=== PATIENT | female | born 1970 | race Caucasian/White ===

== ENCOUNTER → 2016-08-27 | Outpatient (CLI) | payer OTHER ==
[~2016-08-27] MED LIST: CALCTAB5 PO; CHOL100027 PO; GLUCTAB7 PO; IBUP-1050 PO; MTR600X PO; OMEG10007 PO; OXYC-57 PO; TRAM-10 PO
--- NOTE | 2016-08-28 12:47 | MAMMOGRAPHY REPORT ---
BILATERAL DIGITAL SCREENING MAMMOGRAM TOMOSYNTHESIS WITH CAD: 08/27/2016 CLINICAL HISTORY: Routine screening examination. TECHNIQUE: Breast tomosynthesis in addition to standard 2D mammography was performed. Current study was also evaluated with a Computer Aided Detection (CAD) system. COMPARISON: Comparison is made to exams dated: 06/08/2014 mammogram, 08/23/2015 mammogram, 10/16/2011 mammogram, and 12/20/2009 mammogram - [facility]. BREAST COMPOSITION: The tissue of both breasts is extremely dense, which lowers the sensitivity of mammography. FINDINGS: There are scattered and grouped benign-appearing microcalcifications diffusely scattered in the breasts. A dominant circumscribed mass in the 12:00 anterior right breast is unchanged hannah red to prior exams. No suspicious spiculated or irregular mass, architectural distortion or cluster of suspicious microcalcifications is seen. IMPRESSION: ACR BI-RADS CATEGORY 2: BENIGN There is no mammographic evidence of malignancy. A 1 year screening mammogram is recommended. The p atient will receive written notification of the results. Approximately 10% of breast cancers are not detected with mammography. A negative mammographic repor t should not delay biopsy if a clinically suggestive mass is present. Princess Hackett M.D. ay/:08/27/2016 16:49:48 Assembler Ping Pong Table: Vale GAGE)(Kay), [facility] letter sent: Normal 1/2 BI-RADS Code: ACR BI-RADS Category 2: Benign
== END | disposition home or self-care (01) ==
LOC: C.MAMM 14:53
PROVIDERS: ATTEND Family Medicine
DX: Z12.31 Encounter for screening mammogram for malignant neoplasm of breast (principal)

== ENCOUNTER → 2016-11-09 | Outpatient (CLI) | payer OTHER ==
[~2016-11-09] MED LIST changes: -CHOL100027 PO; -GLUCTAB7 PO
== END | disposition home or self-care (01) ==
LOC: C.LAB1850 16:20
PROVIDERS: ATTEND Obstetrics & Gynecology
DX: Z86.14 Personal history of Methicillin resistant Staphylococcus aureus infection (principal)

== ENCOUNTER → 2016-11-16 | Outpatient (CLI) | payer OTHER | END | disposition home or self-care (01) | LOC: C.LAB1850 16:10 | PROVIDERS: ATTEND Obstetrics & Gynecology | DX: Z86.14 Personal history of Methicillin resistant Staphylococcus aureus infection (principal) ==

== ENCOUNTER 2016-11-30 07:24 | Observation (INO) | payer OTHER ==
[2016-10-31 15:44] LABS: BASO % 0.6 %; BASO ABS # 0.04 K/uL (0-0.2); COMPLETE YES; EOS % 1.8 %; HEMATOCRIT 39.3 % (37-47); IG% 0.1 %; LYMPH % 29.7 %; LYMPH ABS # 2.03 K/uL (1.2-3.4); MEAN CELL VOLUME 93.1 fL (80-100); MEAN CORPUSCULAR HEMOGLOBIN 30.6 pg (25-34); MEAN CORPUSCULAR HGB CONC 32.8 g/dl (32-36); MEAN PLATELET VOLUME 9.2 fL (7.4-10.4); MONO % 5.4 %; NEUT % 62.4 %; PLATELET COUNT 344 K/uL (130-400); RED BLOOD COUNT 4.22 M/uL (4.2-5.4); WHITE BLOOD COUNT 6.83 K/uL (4.8-10.8)
[2016-10-31 16:18] LABS: BLOOD UREA NITROGEN 15 mg/dl (7-18); BUN/CREATININE RATIO 18.4 (10-20); CALCIUM 8.9 mg/dl (8.5-10.1); CARBON DIOXIDE 27 mmol/L (21-32); CHLORIDE 107 mmol/L (98-107); CREATININE 0.82 mg/dl (0.60-1.20); GLUCOSE 80 mg/dl (70-99); POTASSIUM 4.3 mmol/L (3.5-5.1); SODIUM 141 mmol/L (136-145)
[2016-11-30] VITALS (7 sets, daily range): BP systolic 119–151; BP diastolic 71–83; PULSE 70–86; TEMP 36.2–37.2; O2SAT 99–100; Ht 162.6 cm; Wt 54.3 kg
[~2016-11-30] VITALS: Ht 162.6 cm; Wt 54.3 kg
[~2016-11-30 07:24] MED LIST changes: +CEFAZOLIN 2000 MG/60 ML D5W IV SCH; +LACTATED RINGER'S 1000ML 1,000 ML IV SCH; -MTR600X PO; -OXYC-57 PO
[2016-11-30] MEDS ORDERED: LIDOCAINE HCL 2% 2 ML VIAL (20MG/ML) ONE (08:00)
[2016-11-30] MEDS ORDERED: MIDAZOLAM HCL 1 MG/ML 2ML VIAL ONE (08:00)
[2016-11-30] MEDS ORDERED: PROPOFOL IV EMULSION 10 MG/ML 20 ML VIAL IV ONE (08:00)
[2016-11-30] MEDS ORDERED: GLYCOPYRROLATE INJ 0.2 MG/ML VIAL ONE ×2 (08:00→10:50)
[2016-11-30] MEDS ORDERED: DEXAMETHASONE SOD INJ 4 MG/ML VIAL ONE (08:00)
[2016-11-30] MEDS ORDERED: ONDANSETRON INJ 2 MG/ML 2 ML VIAL ONE (08:00)
[2016-11-30] MEDS ORDERED: ROCURONIUM BROMIDE 10 MG/ML 5 ML VIAL ONE ×2 (08:00→10:50)
[2016-11-30] MEDS ORDERED: NEOSTIGMINE METHYLSULFATE 5 MG/5 ML SYR ONE (08:00)
[2016-11-30] MEDS ORDERED: FENTANYL CITRATE INJ 50 MCG/1 ML 2 ML VIAL ONE (08:01)
--- NOTE | 2016-11-30 08:39 | History & Physical Bridge Note ---
H&P Re-Evaluation Bridge Note: I have examined the patient, reviewed the History & Physical and in the interval since the performance of the History & Physical I have noted the following changes of clinical significance: No changes noted
[2016-11-30] MEDS ORDERED: BUPIVACAINE 0.5 % 5 MG/1 ML MPF 30ML VIAL ONE (09:14)
[2016-11-30] MEDS ORDERED: METHYLENE BLUE 0.5% 10 ML VIAL ONE (09:14)
[2016-11-30] MEDS ORDERED: KETOROLAC TROMETHAMINE 30 MG/ML VIAL ONE (11:12)
[2016-11-30] MEDS ORDERED: TISSEEL FIBRIN SEALANT 4ML TOP ONE (11:21)
[2016-11-30] MEDS ORDERED: LACTATED RINGER'S 1000ML 1,000 ML IV SCH (11:26)
--- NOTE | 2016-11-30 11:28 | [facility] Post Operative Brief Note ---
Immediate Operative Summary Operative Date Nov 30, 2016. Pre-Operative Diagnosis Adenomyosis Uterus fibroma Pelvic pain Post-Operative Diagnosis Adenomyosis Uterus fibroma Pelvic pain Endometriosis Endometriosis Procedure(s) Performed Robotic-assisted Total Laparoscopic Hysterectomy, bilateral salpingectomy, destruction of endometriosis, cystoscopy Surgeon Dr. Moser [employer] Manager Surgeon(s) none. Estimated Blood Loss 10 ml Findings Endometriosis Specimens A: uterus, cervix, bilateral fallopian tubes Drains Coleman Anesthesia General Complication(s) None Disposition Surgical ICU
--- NOTE | 2016-11-30 11:29 | Discharge Instructions ---
Discharge Instructions Date of Service Nov 30, 2016. Admission Reason for Admission: Pelvic Pain, Fibroid Uterus, Adenomyosis Discharge Discharge Diagnosis / Problem: menorrhagia Discharge Goals Goal(s): Routine recovery after surgery Activity Recommendations Activity Limitations: per Instructions/Follow-up section . Instructions / Follow-Up Instructions / Follow-Up POST OPERATIVE: BOWEL FUNCTION/MEDICATIONS: 1. Constipation pain and discomfort are the most common complaints 5-7 days after surgery. Points 2-6 address the things that can help. 2. Chewing gum can help stimulate the gut and help improve digestion and motility. 3. Milk of Magnesia 1-2 times per day until return of bowel function. 4. Colace is a stool softener that helps. Taking this 2-3 times per day until bowel function returns to normal is highly recommended. 5. Dulcolax is a laxative that may be used if several days have passed without a bowel movement. Alternatively Miralax may be used daily instead. 6. Drink plenty of fluids as this will also reduce constipation. 7. Narcotic pain medications will be prescribed by your physician. They are safe to use and we encourage you to use them. If you are not allergic, ibuprofen will also be prescribed. Many patients will be able to transition off of the narcotic medications to ibuprofen by postoperative day 3. ACTIVITY RECOMMENDATIONS: 1. Get plenty of rest and listen to your body. If you are tired, take a nap. 2. You may shower, but do not take a tub bath until you see your doctor at the 2 week post operative visit. 3. Absolutely NO intercourse and nothing in the vagina until you are examined by your doctor at the 6 week visit. At that visit it will be determined when such activities can be resumed. This can range from 6-12 weeks after your surgery depending on healing time. 4. The main physical activity in the first week should be walking. By the second week you can slowly increase activity. There are no limits on walking up and down stairs. 5. Do not lift more than 5-10 lbs for 4 weeks. Remember the "one-handed rule", i.e. if you can lift something with only one hand it's likely okay. 6. Minimize aquatic scientist like vacuuming and exercising for 4 weeks. "Overdoing it" can lead to incisions not healing, pain and vaginal bleeding , so again, listen to your body. 7. Driving can be resumed when you feel able. Do not drive within 24 hours of taking a narcotic medication. EXPECTATIONS: 1. Vaginal spotting, bleeding and discharge are common after surgery. There may even be an odor to the discharge which is often related to sutures used in the vagina. If you experience heavy vaginal bleeding, call the office number day or night [phone]. 2. Bladder discomfort is common after surgery from the catheter. This usually resolves in 1-2 weeks. 3. By the end of the 3rd or 4th week you should be feeling much better. It may take up to 6 weeks for your energy levels to return to normal. 4. Narcotic medications have side effects such as: dizziness, headache, nausea and/or vomiting. If you suspect your pain medication is causing problems, call our office and we may be able to prescribe an alternate medication. 5. The skin incisions are often covered with a liquid bandage. This will gradually peel off over time. CALL THE OFFICE IF YOU HAVE ANY OF THE FOLLOWIN. Temperature of 101 degrees or higher. 2. Severe abdominal or pelvic pain not relieved by pain medication. 3. Persistent nausea or vomiting. 4. Increased pain with urination or difficulty urinating. 5. Bright red bleeding that soaks more than 1 pad per hour. CONTACT PHONE NUMBERS: Main Office: [phone] Surgical Nurse: [phone] extension [phone] Avoid all tobacco products. If you need help to stop smoking, call [place]'s FREE QUITLINE at . This is a free call. Current Hospital Diet Patient's current hospital diet: Discharge Diet Recommended Diet: Regular Diet Procedures Procedures Performed: Robotic-assisted Total Laparoscopic Hysterectomy, bilateral salpingectomy, destruction of endometriosis, cystoscopy Pending Studies Studies pending at discharge: no Medical Emergencies . Who to Call and When: Medical Emergencies: If at any time you feel your situation is an emergency, please call 911 immediately. . Non-Emergent Contact Non-Emergency issues call your: Mortar Mixer Operator . . "Provider Documentation" section prepared by Dinesh Moser. . VTE Core Measure Inpt VTE Proph given/why not?: Ketan Restrepo, SCD's
[2016-11-30] MEDS ORDERED: OXYCODONE/ACETAMINOPHEN 5-325 TAB PO PRN ×2 (11:30)
[2016-11-30] MEDS ORDERED: MTR600X PO (11:30)
[2016-11-30] MEDS ORDERED: PROMETHAZINE HCL INJ 25 MG in SODIUM CHLORIDE 0.9% 50ML 50 ML IV PRN (11:30)
[2016-11-30] MEDS ORDERED: PROMETHAZINE HCL INJ 12.5 MG in SODIUM CHLORIDE 0.9% 50ML 50 ML IV PRN ×2 (11:30→12:00)
[2016-11-30] MEDS ORDERED: ONDANSETRON INJ 2 MG/ML 2 ML VIAL IV PRN ×2 (11:30→12:00)
[2016-11-30] MEDS ORDERED: BISACODYL 10 MG SUPP PR PRN (11:30)
[2016-11-30] MEDS ORDERED: MEPERIDINE HCL 50 MG/ML CARP IV PRN ×2 (11:30)
[2016-11-30] MEDS ORDERED: MAGNESIUM HYDROXIDE SUSP 30 ML UDC PO PRN (11:30)
[2016-11-30] MEDS ORDERED: OXYC-57 PO (11:30)
[2016-11-30] MEDS ORDERED: SIMETHICONE 80 MG CHEW PO PRN (11:30)
[2016-11-30] MEDS ORDERED: ACETAMINOPHEN 325 MG TAB PO PRN (11:30)
[2016-11-30] MEDS ORDERED: IBUPROFEN 600 MG TAB PO PRN (11:30)
[2016-11-30] MEDS ORDERED: ZOLPIDEM TARTRATE 5 MG TAB PO PRN (11:30)
[2016-11-30] MEDS ORDERED: KETOROLAC TROMETHAMINE 30 MG/ML VIAL IV. PRN (11:30)
[2016-11-30] MEDS ORDERED: HYDROmorphone INJ 1 MG/ML SYR ONE (11:59)
[2016-11-30] MEDS ORDERED: EpHEDrine SULFATE INJ 50 MG/ML AMP IV PRN (12:00)
[2016-11-30] MEDS ORDERED: FLUMAZENIL 0.1 MG/1 ML 10 ML VIAL IV PRN (12:00)
[2016-11-30] MEDS ORDERED: NALOXONE HCL 0.4 MG/1 ML VIAL/CARP IV PRN (12:00)
[2016-11-30] MEDS ORDERED: HYDROmorphone INJ 1 MG/ML SYR IV PRN (12:00)
[2016-11-30] MEDS ORDERED: ATROPINE SULFATE 0.1 MG/ML 5ML SYR IV PRN (12:00)
[2016-11-30] MEDS ORDERED: IV FLUIDS COMPLETED PRN (12:15)
--- NOTE | 2016-11-30 12:34 | Anesthesiology Progress Note ---
Anesthesia Post Op Note Date & Time Nov 30, 2016 at 12:34 Vital Signs Pain Intensity: 3 Vital Signs Past 12 Hours Date Time Temp Pulse Resp B/P (MAP) Pulse Ox O2 Delivery O2 Flow Rate FiO2 11/30/16 12:25 36.7 61 16 126/79 95 Room Air 11/30/16 12:15 61 16 132/80 97 Room Air 11/30/16 12:05 69 16 143/87 100 Room Air 11/30/16 11:55 61 16 135/83 100 Mask 10 11/30/16 11:45 62 16 120/80 100 Mask 10 11/30/16 11:36 36.0 70 16 124/82 99 Mask 10 11/30/16 07:50 37.2 74 16 119/71 (87) 99 Room Air Notes Mental Status: alert / awake / arousable, participated in evaluation Pt Amnestic to Procedure: Yes Nausea / Vomiting: adequately controlled Pain: adequately controlled Airway Patency, RR, SpO2: stable & adequate BP & HR: stable & adequate Hydration State: stable & adequate Anesthetic Complications: no major complications apparent
--- NOTE | 2016-11-30 13:19 | OPERATIVE REPORT ---
DATE OF OPERATION: 11/30/2016 PREOPERATIVE DIAGNOSES: Pelvic pain, menorrhagia and enlarged uterus. POSTOPERATIVE DIAGNOSES: Pelvic pain, enlarged uterus, endometriosis, and menorrhagia. PROCEDURE: Robotically assisted total laparoscopic hysterectomy, bilateral salpingectomy, destruction of endometriosis and cystoscopy. SURGEON: Dr. Moser. FUR FARMER: None. ESTIMATED BLOOD LOSS: 10 mL. FINDINGS: Endometriosis. SPECIMENS: Uterus, cervix, bilateral fallopian tubes. DRAINS: Coleman catheter. ANESTHETIC: General. COMPLICATIONS: None. DISPOSITION: Recovery room. DESCRIPTION OF PROCEDURE: Evette was given a general anesthetic, prepped and draped in dorsal lithotomy position in [facility]. Coleman catheter used to drain her bladder and C carrier attached to her cervix and sewn in place. Uterus was enlarged with mask more posterior of the uterus. Gloves changed and a supraumbilical incision made with scalpel using Dale technique, we did a direct entry with cutdown technique with incision above the umbilicus, cutting down to the fascia, cutting this with Metzenbaums, splitting the rectus muscles and entering the peritoneal cavity without difficulty. The blunt-tipped Dale trocar was then placed. Balloon inflated to support the trocar and then CO2 gas to insufflate the abdomen. FINDINGS: Upper abdomen normal, no sign of visceral organ injury. Deep Trendelenburg position then obtained. Two robotic ports placed, 1 in the left, 1 on the right and then a left upper quadrant a 11 mm bladeless trocar placed. All ports injected with 0.5% Marcaine. FINDINGS: Enlarged uterus with endometriosis in the back wall of the uterus as well as the left ovary, so it was minimally on the left ovary. There was no endometriosis on the pelvic sidewalls and the ureter locations were normal. The bladder flap was also clear as was the appendix. Procedure was begun using the Prismatic manipulator and docking the robot, arm #1 was monopolar pete. Arm #2 was a [place] grasper. We first removed the fallopian tubes, first in the left and the right side, each removed through the accessory port. Identified the ureter on the left side and then coagulated the blood supply distal to the ovary using the bipolar [place] cut with the monopolar pete. The minimal endometriosis was coagulated with the monopolar pete on the left ovary. Round ligament was coagulated and cut. We then skeletonized the uterine vessels on the left side, developed a bladder flap and then coagulated the vessels on the left side, taking care that the ureter was well away from the location. Uterine vessels were then cut with monopolar pete. The exact same process was continued on the right side. Once both uterine vessels were ligated and the bladder flap was fully dissected away, I was able to make a monopolar scissors anterior colpotomy carrying this around to separate the cervix from the vagina completely, staying medial to our uterine vessel ligations. I was able to ensure all the posterior endometriosis was removed with the specimen or destroyed with electrosurgery on the right uterosacral ligament. Specimen was then able to be actually removed through the vagina. This was pulled through carefully and then removed and then a sponge and a glove was placed for pneumoperitoneum. After generous irrigation and suction, we then injected methylene blue intravenously by anesthesia. Instrument exchange arm #1 became the hailey needle driver/sales workers, arm #2 became the Danal d/b/a [employer] grasper. A 2-0 12 inch, 90 day V-Loc suture was then passed through the accessory port. Cuff was closed left to right, back right to left taking sure to incorporate least 1 cm thickness bites of vaginal mucosa full thickness. Once this was done, the suture was cut so there was no tail, accessory port was then used to remove the needle. We then performed cystoscopy. Her urethra was somewhat narrow apertures we actually had to use the pediatric cystoscope, but using normal saline as a solution I visualized the bladder, there was no sign of injury and good strong jets of bluish dye from both left and right ureter openings. Cystoscope removed and a 14 Coleman catheter was then placed for drainage. We then ran back to the robotic console and then we were able to apply Tisseel to the regions of the cuff and the ovarian pedicles for further hemostasis. At this stage, the instruments removed, undocked, and ports removed, gas allowed to escape. Fascia was closed with 0 Vicryl in the umbilical and in the left upper quadrant port and then 4-0 subcuticular Monocryl closures on all the ports with Dermabond applied. Sponge and instrument counts correct. I attest to the content of the Intraoperative Record and any orders documented therein. Any exception s are noted below.
[2016-11-30 16:01] LABS: PREG INTERNAL NEGATIVE QC NEG CLEAR BACKGROUND; PREG INTERNAL POSITIVE QC POS CONTROL LINE
[2016-11-30] MEDS ORDERED: DOCUSATE SODIUM 100 MG CAP PO SCH (21:00)
--- NOTE | 2016-12-03 10:25 | DISCHARGE SUMMARY ---
Evette had a total laparoscopic hysterectomy on 11/30/2016. Her course in hospital was only for a few hours. By approximately 6 hours after surgery she was ambulating, tolerating an oral diet, voiding well, pain was well controlled. She had no significant nausea and vomiting and no extremity pain. PHYSICAL EXAMINATION: VITAL SIGNS: Stable. She was afebrile. IMPRESSION AND PLAN: 6 hours post-surgery. Met discharge criteria. Discharged on Percocet and Motrin and told to follow up in the office and given discharge instructions.
== END 2016-11-30 18:46 | disposition home or self-care (01) ==
LOC: C.ACU 07:24 → C.MS4N 07:40
PROVIDERS: ADMIT Obstetrics & Gynecology; ATTEND Obstetrics & Gynecology
DX: N80.0 Endometriosis of uterus (principal); N72 Inflammatory disease of cervix uteri; D25.9 Leiomyoma of uterus, unspecified; N83.8 Other noninflammatory disorders of ovary, fallopian tube and broad ligament

== ENCOUNTER → 2016-12-10 | Outpatient (CLI) | payer OTHER ==
[~2016-12-10] MED LIST changes: -CEFAZOLIN 2000 MG/60 ML D5W IV SCH; -LACTATED RINGER'S 1000ML 1,000 ML IV SCH; +MTR600X PO; +OXYC-57 PO
[2016-12-10 18:08] LABS: URINE APPEARANCE CLEAR (CLEAR); URINE BILIRUBIN NEG (NEG); URINE COLOR YELLOW; URINE NITRITE NEG (NEG); URINE SPECIFIC GRAVITY 1.014 (1.000-1.030); UROBILINOGEN NEG (NEG)
[2016-12-10 18:11] LABS: MANUAL MICROSCOPIC REQUIRED? NO; REVIEW REQ? NO
== END | disposition home or self-care (01) ==
LOC: C.LAB1850 15:18
PROVIDERS: ATTEND Obstetrics & Gynecology
DX: R35.0 Frequency of micturition (principal); R30.9 Painful micturition, unspecified

== ENCOUNTER → 2017-06-19 | Outpatient (CLI) | payer OTHER | END | disposition home or self-care (01) | LOC: C.LABSPEC 13:38 | PROVIDERS: ATTEND Physician Assistant | DX: N89.8 Other specified noninflammatory disorders of vagina (principal) ==

== ENCOUNTER → 2017-06-20 | Outpatient (CLI) | payer OTHER | END | disposition home or self-care (01) | LOC: C.LAB1850 08:38 | PROVIDERS: ATTEND Physician Assistant | DX: R39.9 Unspecified symptoms and signs involving the genitourinary system (principal) ==

== ENCOUNTER → 2017-08-08 | Outpatient (CLI) | payer OTHER ==
--- NOTE | 2017-08-08 15:18 | MAMMOGRAPHY REPORT ---
BILATERAL DIGITAL DIAGNOSTIC MAMMOGRAM TOMOSYNTHESIS WITH CAD AND TARGETED RIGHT ULTRASOUND: 08/08/2017 CLINICAL HISTORY: The patient reports an enlarging right breast lump. The patient does not have any associated pain. TECHNIQUE: Breast tomosynthesis in addition to standard 2D mammography was performed. Current study was also evaluated with a Computer Aided Detection (CAD) system. Bilateral CC and MLO 2-D and tomosy nthesis images were obtained. COMPARISON: Comparison is made to exams dated: 08/27/2016 mammogram, 08/23/2015 mammogram, 06/08/2014 mammogram, 06/04/2013 mammogram, 10/16/2011 mammogram, and 12/20/2009 mammogram - [facility]. BREAST COMPOSITION: The tissue of both breasts is extremely dense, which lowers the sensitivity of m ammography. FINDINGS: A triangle marker sterling the site of the palpable lump in the right upper outer quadrant. I n the right 12:00 breast there is an obscured round mass which measures approximately 2.4 cm, which m ay account for the palpable lump. The remainder of both breasts demonstrate no suspicious masses, ca lcifications, or areas of architectural distortion. Scattered bilateral benign-appearing calcificati ons are not significantly changed. Targeted ultrasound was performed of the area of the palpable lump pointed out by the patient. In the right breast at approximately 12:00, 2-3 cm from the nipple, at the site of the palpable lump there is an oval circumscribed anechoic mass which measures 2.7 x 1.8 x 2.5 cm. This corresponds with the dominant mammographic mass and is benign and compatible with a simple cyst. Another anechoic benign simple cyst measuring 10 mm is seen within the right 12:00 subareolar breast. IMPRESSION: ACR BI-RADS CATEGORY 2: BENIGN, TARGETED ULTRASOUND ACR BI-RADS CATEGORY 2: BENIGN The palpable lump in the right 12:00 breast corresponds with a benign 2.7 cm simple cyst on ultrasoun d. There is no mammographic or targeted sonographic evidence of malignancy. Recommend clinical foll ow-up for the right breast palpable lump, and recommend routine bilateral screening mammograms in one year. The patient has been verbally notified of the results. Approximately 10% of breast cancers are not detected with mammography. A negative mammographic report should not delay biopsy if a clinically suggestive mass is present. Stephy Guerrero M.D. ah/:08/08/2017 10:29:59 Psychology Assistant: Jeni Rivera, [facility] letter sent: Normal /2 BI-RADS Code: ACR BI-RADS Category 2: Benign Ultrasound BI-RADS: ACR BI-RADS Category 2: Benign
== END | disposition home or self-care (01) ==
LOC: C.MAMM 09:59
PROVIDERS: ATTEND Obstetrics & Gynecology
DX: N63.10 Unspecified lump in the right breast, unspecified quadrant (principal)

== ENCOUNTER 2024-03-05 18:48 | Observation (INO) ==
[2024-03-05 18:59] VITALS: TEMP 98.2
[2024-03-05] MEDS: ASPIRIN CHEW 324 MG PO STA (19:10)
[2024-03-05] MEDS: NITROGLYCERIN SL 0.4 MG/TAB TAB SL PRN (19:11)
[2024-03-05 19:32] LABS: iSTAT Creatinine 0.7 mg/dl (0.6-1.3); iSTAT Hemoglobin 14.3 g/dl (12.0-16.0); iSTAT Ionized Calcium 1.19 mmol/l (1.12-1.32); iSTAT Potassium 3.6 mmol/L (3.3-5.0)
[2024-03-05] MEDS: OPTIRAY 320 125ml IV ONE (19:41)
[2024-03-05 19:42] LABS: Basophils # (auto) 0.06 K/uL (0.00-0.20); Basophils % (auto) 0.8 %; Eosinophils # (auto) 0.11 K/uL (0.00-0.50); Eosinophils % (auto) 1.5 %; Hematocrit (blood only) 40.1 % (37.0-47.0); Hemoglobin 13.6 g/dl (12.0-16.0); Immature Granulocytes # (auto) 0.03 K/uL (0.01-0.20); Immature Granulocytes % (auto) 0.4 %; Lymphocytes # (auto) 2.17 K/uL (1.20-3.40); Lymphocytes % (auto) 29.7 %; Mean Corpuscular Hemoglobin 30.8 pg (25.0-34.0); Mean Corpuscular Hgb Conc 33.9 g/dL (32.0-36.0); Mean Corpuscular Volume 90.9 fL (80.0-100.0); Mean Platelet Volume 9.1 fL (9.4-12.4); Monocytes # (auto) 0.48 K/uL (0.11-0.59); Monocytes % (auto) 6.6 %; Neutrophils # (auto) 4.45 K/uL (1.40-6.50); Platelet Count 355 K/uL (130-400); RDW Coefficient of Variation 12.9 % (11.5-14.5); RDW Standard Deviation 42.4 fL (36.4-46.3); Red Blood Count 4.41 M/uL (4.20-5.40)
[2024-03-05 19:44] LABS: BUN Creatinine Ratio 15.4 (10-20); Calcium 9.4 mg/dl (8.6-10.3); Creatinine Clr Calc Pharmacy 72.9 ml/min; Est GFR (African American) 101.3 ml/min; Est GFR (Non-African American) 87.4 ml/min; Potassium 3.7 mmol/L (3.5-5.1)
[2024-03-05 19:51] LABS: Troponin I High Sensitivity 2.9 pg/ml (0-14)
[2024-03-05 19:52] LABS: Partial Thromboplastin Ratio 1.1; Partial Thromboplastin Time 30 Seconds (21-31); Prothrombin Time 10.8 Seconds (9.0-12.0)
--- NOTE | 2024-03-05 20:07 | CT Scan Report ---
Exam(s): CTA CHEST IV Amt: 110 ml optriay 320 EXAM: CT Angiography Chest With Intravenous Contrast CLINICAL HISTORY: sob palpitations. TECHNIQUE: Axial computed tomographic angiography images of the chest with intravenous contrast. CTDI is 14.25 mGy and DLP is 370 mGy-cm. Automated exposure control was utilized for the study. A dose lowering technique was utilized adhering to the principles of ALARA. MIP reconstructed images were created and reviewed. COMPARISON: No relevant prior studies available. FINDINGS: Pulmonary arteries: Unremarkable. No pulmonary embolism. Aorta: No acute findings. No thoracic aortic aneurysm. Lungs: Unremarkable. No mass. No consolidation. Pleural space: Unremarkable. No significant effusion. No pneumothorax. Heart: Unremarkable. No cardiomegaly. No significant pericardial effusion. Bones/joints: No acute fracture. No dislocation. Soft tissues: Unremarkable. Lymph nodes: Unremarkable. No enlarged lymph nodes. IMPRESSION: Normal chest CTA. No pulmonary embolism. Electronically signed by: Tony Rodriguez MD 03/05/24 20:06 PM
--- NOTE | 2024-03-05 21:08 | History & Physical Report ---
Date of Service March 05, 2024 Assessment & Plan (1) Hypertensive urgency: Plan: Palpitations secondary to symptomatic PVCs Anxiety contributory Past tobacco abuse OBS Initiate beta-elva to suppress ectopy TTE, Cardiology consult Re: Palpitations Anxiolytic as needed DVT prophylaxis. SCDs Full code Text document was generated using [employer] voice recognition software. It may contain grammatical or spelling errors. Kindly contact undersigned for clarification of any documentation item in question. History of Present Illness Chief Complaint: High blood pressure, palpitations Primary Care Provider: Jennifer Monzon PA-C History obtained from patient, family, and records. Medical history significant for past tobacco abuse. Last confinement 2016 under Gynecology service for elective total laparoscopic hysterectomy. Patient woke up this morning not feeling well. High blood pressure throughout the day, SBP 1 40-210. Palpitations without chest pain or SOB. Denies unusual headache symptoms. Admits to some stress at home due to losing employment recently. Denies inordinate OTC NSAID intake. Admits to some dietary indiscretion. Patient snores a little as per but no witnessed apneic episodes at home. SBP 230s upon arrival at the ER. Occasional PVCs noted on ED telemetry. Medical History as above Surgical History : Hysterectomy Family History : Heart disease, DM, thyroid disease, lung cancer Personal/Social history : Past tobacco abuse, occasional EtOH intake, veterinary clinic employment Allergies Allergy/AdvReac Type Severity Reaction Status Date / Time No Known Allergies Allergy Verified 03/06/24 00:27 Home Medications Medication Instructions Recorded Confirmed Type baclofen 10 mg tablet 10 mg PO DAILY PRN PAIN/ SWELLING 09/25/23 03/06/24 History ascorbic acid (vitamin C) 1,000 mg 1,000 mg PO DAILY 03/06/24 03/06/24 History tablet (Vitamin C) aspirin 81 mg capsule 81 mg PO TID PRN Pain 03/06/24 03/06/24 History calcium acetate 667 mg tablet 667 mg PO DAILY 03/06/24 03/06/24 History famotidine 20 mg tablet 20 mg PO DAILY PRN Acid Reflux 03/06/24 03/06/24 History ibuprofen 200 mg tablet 200 mg PO Q6H PRN Pain 03/06/24 03/06/24 History multivitamin 1 tab PO DAILY 03/06/24 03/06/24 History psyllium husk 2.6 gram/4.1 gram 1 tsp PO DAILY 03/06/24 03/06/24 History oral powder Past Med/Surg History Problem List (Updated 03/06/24 @ 03:57 by Tobias Sutton MD) Hypertensive urgency Dyspnea (Acute) Palpitations (Acute) Menopause Spider veins Routine gynecological examination COVID-19 (Acute) Endometriosis Menorrhagia Pelvic pain Medical History No acute medical problems Surgical History No pertinent past surgical history Family History Father Myocardial infarction Denies family history of Ovarian cancer Prostate cancer Breast cancer Colorectal cancer Social History Smoking Status: Never smoker Second Hand Exposure: No; Do You Dip or Chew Tobacco: No; Tobacco Cessation Education Requested by Patient: No Hx Alcohol Use: Yes Alcohol type: other Hx Substance Use: No Preferred Language: Greek Communication Ability: Effective Mapping Pilot Required: No Beliefs That Will Affect Care: None Current Living Situation: Spouse Other Information That Helps Us Care for You: No Feels Safe at Home: Yes Safety Concerns: Feels Safe At This Time Assistive Devices: None Review of Systems Review of Systems: As per HPI, all other systems reviewed and negative Physical Exam Physical Exam: GENERAL: Comfortable, pleasant, no respiratory distress SKIN: Normal color, warm HEENT: [place] palpebral conjunctivae, no ptosis, moist buccal mucosa NECK : Supple, no tenderness CHEST : CTA, no tenderness HEART : RRR, no obvious murmurs ABDOMEN: Some distention, nontender EXTREMITIES : No LE swelling/tenderness, no other conspicuous deformities noted NEUROLOGIC : Coherent, no facial asymmetry, no other gross focality Results & Data Results & Data Vital Signs (Past 12 Hours) Vital Signs Temp Pulse Pulse Resp BP BP Pulse Ox 03/05/24 20:30 78 16 161/102 H 98 03/05/24 20:26 98 03/05/24 19:47 84 20 172/97 H 97 03/05/24 19:29 78 179/103 H 03/05/24 19:23 85 20 197/114 H 98 03/05/24 19:11 88 18 212/138 H 97 03/05/24 19:01 88 20 98 03/05/24 18:56 36.8 C 83 16 234/123 H 98 O2 Del Method 03/05/24 20:30 Room Air 03/05/24 20:26 Room Air 03/05/24 19:47 Room Air 03/05/24 19:29 Room Air 03/05/24 19:23 Room Air 03/05/24 19:11 Room Air 03/05/24 19:01 Room Air 03/05/24 18:56 Room Air Laboratory Results Laboratory Results WBC 7.30 K/ul (4.8-10.8) 03/05/24 19:11 RBC 4.41 M/uL (4.20-5.40) 03/05/24 19:11 Hgb 13.6 g/dl (12.0-16.0) 03/05/24 19:11 POC Hgb 14.3 g/dl (12.0-16.0) 03/05/24 19:18 Hct 40.1 % (37.0-47.0) 03/05/24 19:11 POC Hct 42 % (37-47) 03/05/24 19:18 MCV 90.9 fL (80.0-100.0) 03/05/24 19:11 MCH 30.8 pg (25.0-34.0) 03/05/24 19:11 MCHC 33.9 g/dL (32.0-36.0) 03/05/24 19:11 RDW Std Deviation 42.4 fL (36.4-46.3) 03/05/24 19:11 RDW Coeff of Purnima 12.9 % (11.5-14.5) 03/05/24 19:11 Plt Count 355 K/uL (130-400) 03/05/24 19:11 MPV 9.1 fL (9.4-12.4) L 03/05/24 19:11 Immature Gran % (Auto) 0.4 % 03/05/24 19:11 Neut % (Auto) 61.0 % 03/05/24 19:11 Lymph % (Auto) 29.7 % 03/05/24 19:11 Dundy % (Auto) 6.6 % 03/05/24 19:11 Eos % (Auto) 1.5 % 03/05/24 19:11 Baso % (Auto) 0.8 % 03/05/24 19:11 Neut # (Auto) 4.45 K/uL (1.40-6.50) 03/05/24 19:11 Lymph # (Auto) 2.17 K/uL (1.20-3.40) 03/05/24 19:11 Dundy # (Auto) 0.48 K/uL (0.11-0.59) 03/05/24 19:11 Eos # (Auto) 0.11 K/uL (0.00-0.50) 03/05/24 19:11 Baso # (Auto) 0.06 K/uL (0.00-0.20) 03/05/24 19:11 Immature Gran # (Auto) 0.03 K/uL (0.01-0.20) 03/05/24 19:11 PT 10.8 Seconds (9.0-12.0) 03/05/24 19:11 INR 1.0 (0.9-1.1) 03/05/24 19:11 APTT 30 Seconds (21-31) 03/05/24 19:11 PTT Ratio 1.1 03/05/24 19:11 POC Sodium 139 mmol/L (135-144) 03/05/24 19:18 Sodium 138 mmol/L (136-145) 03/05/24 19:11 POC Potassium 3.6 mmol/L (3.3-5.0) 03/05/24 19:18 Potassium 3.7 mmol/L (3.5-5.1) 03/05/24 19:11 POC Chloride 105 mmol/L (101-112) 03/05/24 19:18 Chloride 104 mmol/L (98-107) 03/05/24 19:11 Carbon Dioxide 26 mmol/L (21-32) 03/05/24 19:11 POC Total CO2 24 mmol/L (24-31) 03/05/24 19:18 Anion Gap 8 (3-11) 03/05/24 19:11 POC Anion Gap 15.0 mmol/L (16-25) L 03/05/24 19:18 POC BUN 12 mg/dl (7-18) 03/05/24 19:18 BUN 12 mg/dl (6-23) 03/05/24 19:11 Creatinine 0.78 mg/dl (0.6-1.2) 03/05/24 19:11 POC Creatinine 0.7 mg/dl (0.6-1.3) 03/05/24 19:18 Est Cr Clr Drug Dosing 72.9 ml/min 03/05/24 19:11 Est GFR ( Amer) 101.3 ml/min 03/05/24 19:11 Est GFR (Non-Af Amer) 87.4 ml/min 03/05/24 19:11 BUN/Creatinine Ratio 15.4 (10-20) 03/05/24 19:11 Glucose 102 mg/dl (70-99(Fasting)) H 03/05/24 19:11 POC Glucose (other) 102 mg/dl (70-99) H 03/05/24 19:18 Calcium 9.4 mg/dl (8.6-10.3) 03/05/24 19:11 POC Ioniz Calcium Shen 1.19 mmol/l (1.12-1.32) 03/05/24 19:18 Troponin I High Sens 2.9 pg/ml (0-14) 03/05/24 19:11 Lipase 25 U/L (11-82) 03/05/24 19:11 Impressions Chest CTA 03/05/24 19:09 Exam(s): CTA CHEST IV Amt: 110 ml optriay 320 EXAM: CT Angiography Chest With Intravenous Contrast CLINICAL HISTORY: sob palpitations. TECHNIQUE: Axial computed tomographic angiography images of the chest with intravenous contrast. CTDI is 14.25 mGy and DLP is 370 mGy-cm. Automated exposure control was utilized for the study. A dose lowering technique was utilized adhering to the principles of ALARA. MIP reconstructed images were created and reviewed. COMPARISON: No relevant prior studies available. FINDINGS: Pulmonary arteries: Unremarkable. No pulmonary embolism. Aorta: No acute findings. No thoracic aortic aneurysm. Lungs: Unremarkable. No mass. No consolidation. Pleural space: Unremarkable. No significant effusion. No pneumothorax. Heart: Unremarkable. No cardiomegaly. No significant pericardial effusion. Bones/joints: No acute fracture. No dislocation. Soft tissues: Unremarkable. Lymph nodes: Unremarkable. No enlarged lymph nodes. IMPRESSION: Normal chest CTA. No pulmonary embolism. Electronically signed by: Tony Rodriguez MD 03/05/24 20:06 PM Diagnostic Findings EKG as per my interpretation : Rate 80, NSR, normal axis, no ischemia
[2024-03-05] MEDS ORDERED: hydrOXYzine HCl 10 MG TAB PO PRN (21:13)
[2024-03-05] MEDS ORDERED: PROMETHAZINE 6.25 MG/50.25 ML BAG IV PRN (21:13)
[2024-03-05] MEDS ORDERED: ACETAMINOPHEN 325 MG TAB PO PRN (21:13)
[2024-03-05 21:44] LABS: Thyroid Stimulating Hormone 2.1 uIu/ml (0.300-4.500)
[2024-03-05] MEDS: NSS + 20MEQ KCL 20 MEQ/1,000 ML BAG IV ONE (21:59)
[2024-03-05] MEDS: POTASSIUM CHLORIDE CRTAB 20 MEQ TABCR PO STA (22:01)
[2024-03-05] MEDS: METOPROLOL TARTRATE 25 MG TAB PO STA (22:01)
--- NOTE | 2024-03-05 22:21 | XRay Report ---
SINGLE VIEW CHEST CLINICAL HISTORY: Atypical chest pain. FINDINGS: A PA chest radiograph is compared to study dated 06/08/2021. The cardiomediastinal silhouet te is unremarkable. The lungs and pleural spaces are clear. No pneumothorax is seen. The bony thorax is grossly intact. IMPRESSION: No active disease in the chest. ACT 112: Negative or not required by law. Electronically signed by: Fuad Mccabe M.D. 03/05/2024 10:19 PM
[2024-03-05] MEDS: hydrALAZINE HCL 20 MG/ML VIAL IV ONE (22:53)
[2024-03-05] MEDS ORDERED: NITROGLYCERIN SL 0.4 MG/TAB TAB SL PRN (23:03)
--- NOTE | 2024-03-06 01:16 | Emergency Department Note ---
History of Present Illness General Chief Complaint: Arrhythmia/Palpitations Stated Complaint: BP HIGH, HEART PALPATATIONS Time Seen by Provider: 03/05/24 19:01 History of Present Illness Provider Complaint: + palpitations Onset (ago): 1 day(s) Duration: + Worsening Context: + occurred during exertion Arrhythmia history: no on anti-coagulants Associated symptoms: + chest pain and + shortness of breath; no syncope, no near-syncope, no nausea, no vomiting, no anxiety, no diaphoresis, no cough or no muscle cramps Home Medications Medication Instructions Recorded Confirmed Type baclofen 10 mg tablet 10 mg PO DAILY PRN PAIN/ SWELLING 09/25/23 03/06/24 History ascorbic acid (vitamin C) 1,000 mg 1,000 mg PO DAILY 03/06/24 03/06/24 History tablet (Vitamin C) aspirin 81 mg capsule 81 mg PO TID PRN Pain 03/06/24 03/06/24 History calcium acetate 667 mg tablet 667 mg PO DAILY 03/06/24 03/06/24 History famotidine 20 mg tablet 20 mg PO DAILY PRN Acid Reflux 03/06/24 03/06/24 History ibuprofen 200 mg tablet 200 mg PO Q6H PRN Pain 03/06/24 03/06/24 History multivitamin 1 tab PO DAILY 03/06/24 03/06/24 History psyllium husk 2.6 gram/4.1 gram 1 tsp PO DAILY 03/06/24 03/06/24 History oral powder Allergies Allergy/AdvReac Type Severity Reaction Status Date / Time No Known Allergies Allergy Verified 03/06/24 00:27 Past Med/Surg History Problem List (Updated 03/06/24 @ 01:15 by Marcial Fernandez MD) Dyspnea (Acute) Palpitations (Acute) Menopause Spider veins Routine gynecological examination COVID-19 (Acute) Endometriosis Menorrhagia Pelvic pain Medical History No acute medical problems Surgical History No pertinent past surgical history Family History Father Myocardial infarction Denies family history of Ovarian cancer Prostate cancer Breast cancer Colorectal cancer Social History Smoking Status: Never smoker Second Hand Exposure: No; Do You Dip or Chew Tobacco: No; Tobacco Cessation Education Requested by Patient: No Hx Alcohol Use: Yes Alcohol type: other Hx Substance Use: No Preferred Language: Venezuelan Communication Ability: Effective Sales Consultant Residential Manager Required: No Beliefs That Will Affect Care: None Current Living Situation: Spouse Other Information That Helps Us Care for You: No Feels Safe at Home: Yes Safety Concerns: Feels Safe At This Time Assistive Devices: None Physical Exam 2 Vital Signs: Vital Signs - 24 hr 03/05/24 18:56 03/05/24 19:01 03/05/24 19:11 Temperature 36.8 C Temperature Source Temporal Artery Sc an Pulse Rate 83 88 Pulse Rate [Left] 88 Pulse Rhythm Regular Pulse Rhythm [Left ] Regular Pulse Strength [Le ft] Normal Respiratory Rate 16 20 18 Respiratory Effort / Characteristics Non-Labored Sponta neous Non-Labored Sponta neous Respiratory Depth Normal Normal Respiratory Patter n Regular Regular Blood Pressure 234/123 H Blood Pressure [Ri ght Arm] 212/138 H Blood Pressure Renata n 160 Blood Pressure Renata n [Right Arm] 162 Blood Pressure Pos ition Sitting Blood Pressure Pos ition [Right Arm] Lying Pulse Oximetry 98 98 97 Oxygen Delivery Me thod Room Air Room Air Room Air Sepsis Recent Feve r Within 48 Hours No Sepsis New/Unexpla ined Change in Men naila Status N/A Sepsis Action Take n by Nursing No Action Required 03/05/24 19:23 03/05/24 19:29 03/05/24 19:47 Temperature Temperature Source Pulse Rate Pulse Rate [Left] 85 78 84 Pulse Rhythm Pulse Rhythm [Left ] Regular Regular Regular Pulse Strength [Le ft] Normal Normal Normal Respiratory Rate 20 20 Respiratory Effort / Characteristics Non-Labored Sponta neous Non-Labored Sponta neous Non-Labored Sponta neous Respiratory Depth Normal Normal Normal Respiratory Patter n Regular Regular Blood Pressure Blood Pressure [Ri ght Arm] 197/114 H 179/103 H 172/97 H Blood Pressure Renata n Blood Pressure Renata n [Right Arm] 141 128 122 Blood Pressure Pos ition Blood Pressure Pos ition [Right Arm] Lying Lying Lying Pulse Oximetry 98 97 Oxygen Delivery Me thod Room Air Room Air Room Air Sepsis Recent Feve r Within 48 Hours Sepsis New/Unexpla ined Change in Men naila Status Sepsis Action Take n by Nursing 03/05/24 20:26 03/05/24 20:30 03/05/24 20:40 Temperature Temperature Source Pulse Rate 75 Pulse Rate [Left] 78 Pulse Rhythm Pulse Rhythm [Left ] Regular Pulse Strength [Le ft] Normal Respiratory Rate 16 Respiratory Effort / Characteristics Non-Labored Sponta neous Respiratory Depth Normal Respiratory Patter n Regular Blood Pressure Blood Pressure [Ri ght Arm] 161/102 H Blood Pressure Renata n Blood Pressure Renata n [Right Arm] 121 Blood Pressure Pos ition Blood Pressure Pos ition [Right Arm] Lying Pulse Oximetry 98 98 Oxygen Delivery Me thod Room Air Room Air Sepsis Recent Feve r Within 48 Hours Sepsis New/Unexpla ined Change in Men naila Status Sepsis Action Take n by Nursing Physical Exam: Physical Exam GENERAL: She is oriented to person, place, and time. She appears well-developed and well-nourished. She does not appear distressed. HENT: Exam performed. -Head: Normocephalic and atraumatic. -Right Ear: External ear normal. No mastoid erythema -Left Ear: External ear normal. No mastoid erythema -Mouth/Throat: The oropharynx is clear and moist. No trismus in the jaw. No dental abscesses or uvula swelling. No oropharyngeal exudate or tonsillar abscesses. EYES: Conjunctivae and EOM are normal. Pupils are equal, round, and reactive to light. Right eye exhibits no discharge. Left eye exhibits no discharge. No scleral icterus. NECK: Normal range of motion. Neck supple. No JVD present. CV: Normal rate, regular rhythm, normal heart sounds and intact distal pulses. There is no peripheral edema. Palpable radial pulses bue. PULM/CHEST: Effort normal and breath sounds normal. No respiratory distress. No stridor. She has no wheezes. She has no rales. -Chest Wall: She exhibits no tenderness. ABD: The abdomen is soft. There is no tenderness. There is no rebound, no guarding. MUSC/SKEL: Normal range of motion. There is no peripheral edema, tenderness or deformity. Palpable DP and PT pulses bilateral lower extremities. LYMPH: No cervical adenopathy. NEURO: She is alert and oriented to person, place, and time. She has normal strength. No cranial nerve deficit or sensory deficit. Coordination and gait normal. GCS eye subscore is 4. GCS verbal subscore is 5. GCS motor subscore is 6. Cerebellar tests wnl. SKIN: Skin is warm and dry. She is not diaphoretic. PSYCH: She has a normal mood and affect. Behavior is normal. Judgment and thought content normal. Course Course 1900: The patient was evaluated in room A10. A complete history and physical exam was performed Cardiac monitoring: An order was placed for continuous cardiac monitoring. The monitor shows a rate of 80 with sinus rhythm interpreted by pa 2024: Vital signs stable. Blood pressure improved status post sublingual nitroglycerin and. Patient reports her symptoms have resolved status post nitroglycerin administration. Labs and imaging are unremarkable. [facility] be [facility]. Administered Medications Potassium Chloride/Sodium Chloride (Normal Saline W/20 Meq Kcl) 20 meq in 1,000 mls @ 50 mls/hr IV .Q20H ONE Stop: 03/06/24 17:13 Last Admin: 03/05/24 21:59 Dose: 50 mls/hr Documented By: DELONTE Discontinued Medications Aspirin (Aspirin Chew 324 Mg) 324 mg PO NOW STA Stop: 03/05/24 19:02 Last Admin: 03/05/24 19:10 Dose: 81 mg Documented By: DELONTE Hydralazine HCl (Hydralazine Hcl 20 Mg/Ml Vial) 5 mg IV NOW ONE Stop: 03/05/24 22:31 Last Admin: 03/05/24 22:53 Dose: 5 mg Documented By: DELONTE Ioversol (Optiray 320 125ml) 110 ml IV ONCE ONE Stop: 03/05/24 19:41 Last Admin: 03/05/24 19:41 Dose: 110 ml Documented By: BINH Metoprolol Tartrate (Metoprolol Tartrate 25 Mg Tab) 25 mg PO NOW STA Stop: 03/05/24 21:10 Last Admin: 03/05/24 22:01 Dose: 25 mg Documented By: DELONTE Nitroglycerin (Nitroglycerin Sl 0.4 Mg/Tab Tab) 0.4 mg SL Q5M PRN PRN Reason: Chest Pain Stop: 04/04/24 19:00 Last Admin: 03/05/24 19:29 Dose: 0.4 mg Documented By: Admin: 03/05/24 19:25 Dose: 0.4 mg Documented By: Admin: 03/05/24 19:11 Dose: 0.4 mg Documented By: DELONTE Potassium Chloride (Potassium Chloride Crtab 20 Meq Tabcr) 40 meq PO NOW STA Stop: 03/05/24 21:10 Last Admin: 03/05/24 22:01 Dose: 40 meq Documented By: DELONTE Medical Decision Making Laboratory Data Attestation: I reviewed the patient's lab results. 03/05/24 19:11 03/05/24 19:11 Lab Results 03/05/24 03/05/24 Range/Units 19:11 19:18 WBC 7.30 (4.8-10.8) K/ul RBC 4.41 (4.20-5.40) M/uL Hgb 13.6 (12.0-16.0) g/dl POC Hgb 14.3 (12.0-16.0) g/dl Hct 40.1 (37.0-47.0) % POC Hct 42 (37-47) % MCV 90.9 (80.0-100.0) fL MCH 30.8 (25.0-34.0) pg MCHC 33.9 (32.0-36.0) g/dL RDW Std Deviation 42.4 (36.4-46.3) fL RDW Coeff of Purnima 12.9 (11.5-14.5) % Plt Count 355 (130-400) K/uL MPV 9.1 L (9.4-12.4) fL Immature Gran % (Auto) 0.4 % Neut % (Auto) 61.0 % Lymph % (Auto) 29.7 % Crosby % (Auto) 6.6 % Eos % (Auto) 1.5 % Baso % (Auto) 0.8 % Neut # (Auto) 4.45 (1.40-6.50) K/uL Lymph # (Auto) 2.17 (1.20-3.40) K/uL [place] # (Auto) 0.48 (0.11-0.59) K/uL Eos # (Auto) 0.11 (0.00-0.50) K/uL Baso # (Auto) 0.06 (0.00-0.20) K/uL Immature Gran # (Auto) 0.03 (0.01-0.20) K/uL PT 10.8 (9.0-12.0) Seconds INR 1.0 (0.9-1.1) APTT 30 (21-31) Seconds PTT Ratio 1.1 POC Sodium 139 (135-144) mmol/L Sodium 138 (136-145) mmol/L POC Potassium 3.6 (3.3-5.0) mmol/L Potassium 3.7 (3.5-5.1) mmol/L POC Chloride 105 (101-112) mmol/L Chloride 104 (98-107) mmol/L Carbon Dioxide 26 (21-32) mmol/L POC Total CO2 24 (24-31) mmol/L Anion Gap 8 (3-11) POC Anion Gap 15.0 L (16-25) mmol/L POC BUN 12 (7-18) mg/dl BUN 12 (6-23) mg/dl Creatinine 0.78 (0.6-1.2) mg/dl POC Creatinine 0.7 (0.6-1.3) mg/dl Est Cr Clr Drug Dosing 72.9 ml/min Est GFR ( Amer) 101.3 ml/min Est GFR (Non-Af Amer) 87.4 ml/min BUN/Creatinine Ratio 15.4 (10-20) Glucose 102 H (70-99(Fasting)) mg/dl POC Glucose (other) 102 H (70-99) mg/dl Calcium 9.4 (8.6-10.3) mg/dl POC Ioniz Calcium Shen 1.19 (1.12-1.32) mmol/l Magnesium 2.0 (1.7-2.4) mg/dl Troponin I High Sens 2.9 (0-14) pg/ml Lipase 25 (11-82) U/L TSH 2.100 (0.300-4.500) uIu/ml Imaging Data Attestation: I personally reviewed and interpreted this imaging study as follows: My Impression: Chest x-ray: Chest x-ray negative. Airway clear. No pneumothorax. No consolidation. No cardiomegaly or cephalization.. No free air under the diaphragm. No fractures of the skeletal structures. CTA chest: No PE or dissection Radiologist's Impression: Chest X-Ray 03/05/24 19:01 SINGLE VIEW CHEST CLINICAL HISTORY: Atypical chest pain. FINDINGS: A PA chest radiograph is compared to study dated 06/08/2021. The cardiomediastinal silhouette is unremarkable. The lungs and pleural spaces are clear. No pneumothorax is seen. The bony thorax is grossly intact. IMPRESSION: No active disease in the chest. ACT 112: Negative or not required by law. Electronically signed by: Fuad Mccabe M.D. 03/05/2024 10:19 PM Chest CTA 03/05/24 19:09 Exam(s): CTA CHEST IV Amt: 110 ml optriay 320 EXAM: CT Angiography Chest With Intravenous Contrast CLINICAL HISTORY: sob palpitations. TECHNIQUE: Axial computed tomographic angiography images of the chest with intravenous contrast. CTDI is 14.25 mGy and DLP is 370 mGy-cm. Automated exposure control was utilized for the study. A dose lowering technique was utilized adhering to the principles of ALARA. MIP reconstructed images were created and reviewed. COMPARISON: No relevant prior studies available. FINDINGS: Pulmonary arteries: Unremarkable. No pulmonary embolism. Aorta: No acute findings. No thoracic aortic aneurysm. Lungs: Unremarkable. No mass. No consolidation. Pleural space: Unremarkable. No significant effusion. No pneumothorax. Heart: Unremarkable. No cardiomegaly. No significant pericardial effusion. Bones/joints: No acute fracture. No dislocation. Soft tissues: Unremarkable. Lymph nodes: Unremarkable. No enlarged lymph nodes. IMPRESSION: Normal chest CTA. No pulmonary embolism. Electronically signed by: Tony Rodriguez MD 03/05/24 20:06 PM ECG Data Attestation: I personally reviewed and interpreted this ECG as follows: Rate (beats per minute): 78 Rhythm: normal sinus Findings: no ST depression, no ST elevation or no prolonged QT [facility] Narrative 190: The patient was evaluated in room A10. A complete history and physical exam was performed Cardiac monitoring: An order was placed for continuous cardiac monitoring. The monitor shows a rate of 80 with sinus rhythm interpreted by pa 2024: Vital signs stable. Blood pressure improved status post sublingual nitroglycerin and. Patient reports her symptoms have resolved status post nitroglycerin administration. Labs and imaging are unremarkable. Patient be admitted to the [facility] team. Impression & Plan Palpitations, Dyspnea Discharge Plan Visit Data Chief Complaint: Arrhythmia/Palpitations Stated Complaint: BP HIGH, HEART PALPATATIONS ED Provider: Marcial Fernandez Discharge Problem: Palpitations, Dyspnea Patient Disposition: Admitted As Inpatient Discharge Instructions Interventions: ED Discharge Assessment Last Done: 03/05/24 23:04 Discharge Problem: Dyspnea Qualifiers: Dyspnea type: unspecified Qualified Code(s): R06.00 - Dyspnea, unspecified
[2024-03-06] MEDS ORDERED: FAMOTIDINE 20 MG TAB PO PRN (03:49)
--- OUTSIDE RECORDS SUMMARY | 2024-03-06 05:18 | External Medical Summary ---
Author Name Unknown Address Unknown Organization [id number][place] [place] [address] [place] [id number] Laboratory Report Ordering Provider Test Date Status ALEJANDRO AMAYA 01/01/2024 15:52:48 Final Observation Date Value Abnormality Reference (Units) Status Bacteria identified in Specimen by Culture 01/01/2024 15:52:48 No Aeromonas species or Plesiomonas species isolated. Final Test: Gastrointestinal Patho gen Panel Culture
Specimen Source: Stool
Specimen Type: Stool
Specimen Date: 01/01/2024 1552
Result Date: 01/04/2024 1109
Result Status: Final result
Resulting Lab[place] [facility] [place]
[address]
[place] [id number]

CULTURE

No Aeromonas species or Plesiomonas species isolated.

null Performing Location [facility] [place] [address] [place] [id number]
--- OUTSIDE RECORDS SUMMARY | 2024-03-06 05:18 | External Medical Summary ---
Author Name Unknown Address Unknown Organization K01:[facility] [place] [facility] [place] [address] [facility] [address] Laboratory Report Ordering Provider Test Date Status ALEJANDRO AMAYA 01/01/2024 15:52:48 Final Observation Date Value Abnormality Reference (Units ) Status Campylobacter sp DNA.diarrheagenic [Presence] in Stool by JASMYNE with probe detection 01/01/2024 15:52:48 Negative Negative Final Salmonella sp rpoD gene [Presence] in Stool by JASMYNE with probe detection 01/01/2024 15:52:48 Negative Negative Final Shigella species+EIEC invasion plasmid antigen H ipaH gene [Presence] in Stool by JASMYNE with probe detection 01/01/2024 15:52:48 Negative Negative Final Vibrio sp DNA [Identifier] in Specimen by JASMYNE with probe detection 01/01/2024 15:52:48 Negative Negative Final Yersinia enterocolitica recN gene [Presence] in Stool by JASMYNE with probe detection 01/01/2024 15:52:48 Negative Negative Final Escherichia coli Stx1 toxin stx1 gene [Presence] in Stool by JASMYNE with probe detection 01/01/2024 15:52:48 Negative Negative Final Escherichia coli Stx2 toxin stx2 gene [Presence] in Stool by JASMYNE with probe detection 01/01/2024 15:52:48 Negative Negative Final Norovirus genogroups I and II RNA panel - Stool by JASMYNE with probe detection 01/01/2024 15:52:48 Negative Negative Final Rotavirus A RNA [Presence] in Stool by JASMYNE with probe detection 01/01/2024 15:52:48 Negative Negative Final Performing Location [facility] [place] [facility] [place] [facility] [address] [facility] [address]
--- OUTSIDE RECORDS SUMMARY | 2024-03-06 05:18 | External Medical Summary ---
Author Name Unknown Address Unknown Organization K01[place] [facility] [place] [address] [place] [address] Laboratory Report Ordering Provider Test Date Status SAMANTHAALEJANDRO PARNELL 01/01/2024 15:52:48 Final Observation Date Value Abnormality Reference (Units ) Status Cryptosporidium sp Ag [Presence] in Stool by Immunoassay 01/01/2024 15:52:48 Negative Negative Final Negative for Cryptosporidium Antigen. Giardia lamblia Ag [Presence ] in Stool by Immunoassay 01/01/2024 15:52:48 Negative Negative Final Negative for Giardia Specifi c Antigen. Performing Location [place] [facility] [place] [address] [facility] [address]
--- OUTSIDE RECORDS SUMMARY | 2024-03-06 05:18 | External Medical Summary | Summary of Care ---
Author Name Unknown Organization [facility] Address [address] [place] [address] Phone [phone] Care Team Providers Care Trading Specialist Name Role Phone Jennifer Monzon PA-C Primary Care Provider [phone] Reason for Visit * Reason Comments Outpatient Testing Encounter Details Date Type Department Care Team ([facility] st Contact Info) Description 12/27/2023 4:00 PM EDT Laboratory Laboratory, [place] [address] [place] [address] [place], [facility] [address], [place] [id number] Abdominal pain, epigastric; Gastroesophageal reflux disease without esophagitis; Nausea; Diarrhea, unspecified type Allergies No known active allergiesdocumented as of this encounter (statuses as of 12/27/2023) Medications Medication Sig Dispensed Refills Start Date End Date Status omeprazole (PRILOSEC) 20 MG CPDRIndications:Gastr oesophageal reflux disease, esophagitis presence not specified,Nausea Take 1 Capsule by mouth in the morning. 1 hour before the first meal of the day. 30 Cap 5 08/06/2016 Active Calcium Carbonate 1500 (600 Ca) MG Oral Tablet Take 600 mg by mouth. Active Famotidine 10 MG Oral Tablet (Pepcid) Take 1 Tablet by mouth in the morning and 1 Tablet before bedtime. Active Cyclobenzaprine HCl 5 MG Oral Tablet (Flexeril)Indications :Chronic tension-type headache, not intractable Take 1 Tablet by mouth in the morning and 1 Tablet at noon and 1 Tablet before bedtime. 30 Tablet 07/25/2022 Active Baclofen 5 MG Oral Tablet (Lioresal) Take 1 Tablet by mouth as needed. Active documented as of this encounter (statuses as of 12/27/2023) Active Problems Problem Noted Date Diagnosed Date Reactive cervical lymphadenopathy 05/29/2016 Anxiety state 11/20/2010 Family history of ischemic heart disease 010 documented as of this encounter (statuses as of 12/27/2023) Resolved Problems Problem Noted Date Diagnosed Date Resolved Date Edema 11/20/2010 07/15/2017 Myalgia and myositis 11/20/2010 018 CARBUNCLE RIGHT AXILLA 10/14/200807/15 documented as of this encounter (statuses as of 12/27/2023) Immunizations Name Administration Dates Next Due TD - Tetanus/Diptheria (ADULT) 06/10/2003 TDAP (age 10 and older)(Boostrix) 11/15/2017 documented as of this encounter Social History Tobacco Use Types Packs/Day Years Used Date Smoking Tobacco: Former Cigarettes 0.3 20 Passive Smoke Exposure: Past Smokeless Tobacco: Never Comments:Quit 2007 Alcohol Use Standard Drinks/Week Comments Yes 0 (1 standard drink = 0.6 oz pur e alcohol) Occasion PHQ-2 Answer Date Recorded PHQ Adult Total Score 0 09/26/2022 Hunger Vital Sign Answer Date Recorded Within the past 12 months, y ou worried that your food would run out before you got the money to buy more. Never true 09/27/19 23 Within the past 12 months, t he food you bought just didn't last and you didn't have money to get more. Never true 09/26/2022 Utilities Answer Date Recorded Do you have trouble paying y our heating, water, or electric bill? (Adult - for ages 18 years and over) Not on file 11/26/2023 Is your family able to pay t he heat, water, or electric bill? (Household - for ages 0-17 years) Not on file 11/26/2023 Does your family have access to good internet? (Household - for ages 0-17 years) Not on file 11/26/2023 Social Connections Answer Date Recorded How often do you feel lonely or isolated from those around you? (Adult - for ages 18 years and over) Not on file 11/26/2023 Sex and Gender Information Value Date Recorded Sex Assigned at Female 09/26/2022 8:24 AM EDT Gender Identity Female 09/26/2022 8:24 AM EDT Sexual Orientation Straight 09/26/2022 8: 24 AM EDT Job Start Date Occupation Industry Not on file Not on file Not on file documented as of this encounter Plan of Treatment Pending Results Name Type Priority Associated Diagnoses Date /Time COMPREHENSIVE METABOLIC PANEL Lab Routine Abdominal pain, epigastric Gastroesophageal reflux disease without esophagitis Nausea Diarrhea, unspecified type 12/27/2023 3:52 PM EDT CBC WITH WBC DIFFERENTIAL Lab Routine Abdominal pain, epigastric Gastroesophageal reflux disease without esophagitis Nausea Diarrhea, unspecified type 12/27/2023 3:52 PM EDT CBC Lab Routine Abdominal pain, epigastric Gastroesophageal reflux disease without esophagitis Nausea Diarrhea, unspecified type 12/27/2023 3:52 PM EDT DIFFERENTIAL, AUTOMATED Lab Routine Abdominal pain, epigastric Gastroesophageal reflux disease without esophagitis Nausea Diarrhea, unspecified type 12/27/2023 3:52 PM EDT Health Maintenance Due Date Last Done Comments Hepatitis B Vaccine (1 of 3 - 19+ 3-dose series) 1990 Cologuard 2016 Fecal Occult Blood Test 2016 Sigmoidoscopy 2016 COVID-19 Vaccine ( season) 2023 Depression Screening 09/27/2023 09/26/2022 Influenza Vaccine (FLU shot) (#1) 2024 Mammogram 10/14/2024 10/15/2023, 12/2023, 10/01/2023, Additional history exists Lipid Panel 02/28/2026 02/28/2021, 10/2017, 12/20/2009 DTaP,Tdap,and Td Vaccines (2 - Td or Tdap) 11/16/2027 11/15/2017, 06/10/2003 Colonoscopy 06/29/2030 06/29/2020, 06/29/2020 Colorectal Cancer Screening 06/29/2030 Pap Smear Discontinued 05/15/2016, 07/2014, 05/05/2014, Additional history exists HIV Screening Discontinued HPV (Gardasil) Vaccine Aged Out No lo nger eligible based on patient's age to complete this topic Hepatitis C Screening Discontinued MENINGOCOCCAL (MENACTRA/MENVEO) Aged Out No longer eligible based on patient's age to complete this topic Pneumococcal Vaccine: Pediatrics (0 to 5 Years) and At-Risk Patients (6 to 64 Years) Aged Out No longer eligible based on patient's age to complete this topic Zoster Vaccines Discontinued documented as of this encounter Medical Devices Not on filedocumented as of this encounter Visit Diagnoses Diagnosis Abdominal pain, epigastric Gastroesophageal reflux disease without esophagitis Esophageal reflux Nausea Nausea alone Diarrhea, unspecified type documented in this encounter Care Teams Trading Specialist Relationship Specialty Start Date End Date Jennifer Monzon PA-C [address] [facility] [address] P[facility] - General Physician Milk Bottler 10/02/18 documented as of this encounter
--- OUTSIDE RECORDS SUMMARY | 2024-03-06 05:18 | External Medical Summary | Summary of Care ---
Author Name Unknown Organization [facility] Address [address] [place] [address] Phone [phone] Care Team Providers Care Pharmacist Name Role Phone Jennifer Monzon PA-C Primary Care Provider [phone] Reason for Visit * Reason Onset Date Comments MyCode Nonconsent- Withdrew Consent 01/10/2024 Encounter Details Date Type Department Care Team ([facility] st Contact Info) Description 01/10/2024 Orders Only Outcomes Research Department [address] [place], [place] [id number] Jerrica England CHRA MyCode Nonconsent Withdrawal Documentation Allergies No known active allergiesdocumented as of this encounter (statuses as of 01/10/2024) Medications Medication Sig Dispensed Refills Start Date [...] 1 Tablet by mouth as needed. Active Sucralfate 1 GM Oral Tablet (Carafate)Indications :Abdominal pain, epigastric,Gastroesop hageal reflux disease without esophagitis Crush one tab by mouth and mix with 10 ml of water - take 30 min before meals and at bedtime 120 Tablet 5 01/03/2024 Active documented as of this encounter (statuses as of 01/10/2024) Active Problems Problem Noted Date Diagnosed Date Reactive cervical lymphadenopathy 05/29/2016 Anxiety state 11/20/2010 Family history of ischemic heart disease 010 documented as of this encounter (statuses as of 01/10/2024) Resolved Problems Problem Noted Date Diagnosed Date Resolved Date Edema 11/20/2010 07/15/2017 Myalgia and myositis 11/20/2010 018 CARBUNCLE RIGHT AXILLA 10/14/200807/15 documented as of this encounter (statuses as of 01/10/2024) Immunizations Name Administration Dates Next Due TD [...] on file documented as of this encounter Progress Notes * Jerrica England CHRA - 01/10/2024 9:01 AM EDT Jet[employer] Nonconsent Withdrawal Documentation Evette Jackson was approached in the clinic regarding participation in the MyCode Project and originally consented to the study. Evette Jackson then withdrew consent to participate in the project. documented in this encounter Plan of Treatment Health Maintenance Due Date Last Done Comments [...] Not on filedocumented as of this encounter Care Teams Pharmacist Relationship Specialty Start Date End Date Jennifer Monzon PA-C [address] [facility] [place] [address] PCP - General Physician Starchmaker 10/02/18 documented as of this encounter
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
--- OUTSIDE RECORDS SUMMARY | 2024-03-06 05:18 | External Medical Summary | Summary of Care ---
Author Name Unknown Organization [facility] Address [address] [place] [address] Phone [phone] Care Team Providers Care Sports Teacher Name Role Phone Jennifer Monzon PA-C Primary Care Provider [phone] [phone] Reason for Visit * Reason Comments Acute Pt states that she s aw Dr. Wu last week, but she is still having GI issues Encounter Details Date Type Department Care Team (Late st Contact Info) Description 01/03/2024 3:00 PM EDT Office Visit [facility] [address] [place] [address] Jennifer Monzon PA-C [address] [place] [address] Abdominal pain, epigastric*; Gastroesophageal reflux disease without esophagitis Allergies No known active allergiesdocumented as of [...] Sign Reading Time Taken Comments Blood Pressure 140/82 01/03/2024 3:04 PM EDT Pulse 74 01/03/2024 3:04 PM EDT Temperature 36.5 C (97.7 F) 01/03/2024 3:04 PM ED T Respiratory Rate 16 01/03/2024 3:04 PM EDT Oxygen Saturation 96% 01/03/2024 3:04 PM EDT Inhaled Oxygen Concentration - - Weight 61 kg (134 lb 6.4 oz) 01/03/2024 3:04 PM EDT Height 162.6 cm (5' 4") 01/03/2024 3:04 PM EDT Body Mass Index 23.07 01/03/2024 3:04 PM EDT documented in this encounter Progress Notes * Jennifer Monzon PA-C - 01/03/2024 3:06 PM EDT Images from the original note were not included. History of Present Illness Evette Jackson is a 53 year old female that presents for Acute (Pt states that she saw Dr. Wu last week, but she is still having GI issues ) One and onff stomach stuff To the left of center - mid abdomen Gnawing feeling Was different this last week - she is stil having gas and burping Acid reflux is calming down Stomach is rumbling Diarrhea for 3 days - projectile Flying out Like a bug Saturday woke up with her normal stool Tends to have some undigested food in her gut She can eat and then 24 hours later, see undigested food in her stool. She did a kub - had 3 days of diarrhea and a really large bm that morning before her kub that showed moderate stool throughout the gut Burping and flatulence Did a cleanse at Dr Wu's behest Results for orders placed or performed in visit on 01/01/24 REGIONAL PARASITE ANTIGEN SCREEN Result Value Ref Range Cryptosporidium Antigen Result Negative Negative Giardia Antigen Result Negative Negative GASTROINTESTINAL PATHOGEN PANEL PCR Result Value Ref Range Campylobacter group by PCR Negative Negative Salmonella species by PCR Negative Negative Shigella species by PCR Negative Negative Vibrio group by PCR Negative Negative Yersinia enterocolitica by PCR Negative Negative Shiga Toxin 1 Gene by PCR Negative Negative Shiga Toxin 2 Gene by PCR Negative Negative Norovirus by PCR Negative Negative Rotavirus by PCR Negative Negative GASTROINTESTINAL PATHOGEN PANEL CULTURE Result Value Ref Range Culture Growth No Aeromonas species or Plesiomonas species isolated. Physical Exam Vitals: 01/03/24 1504 Temp: 36.5 C (97.7 F) Pulse: 74 Resp: 16 SpO2: 96% BP: 140/82 BMI: 23.06 BP Readings from Last 3 Encounters: 01/03/24 140/82 12/27/23 126/80 08/01/23 162/100 Wt Readings from Last 3 Encounters: 01/03/24 61 kg (134 lb 6.4 oz) 12/27/23 62 kg (136 lb 9.6 oz) 08/01/23 62 kg (136 lb 9.6 oz) BMI Readings from Last 3 Encounters: 01/03/24 23.07 kg/m 12/27/23 23.45 kg/m 08/01/23 23.45 kg/m Ht Readings from Last 3 Encounters: 01/03/24 1.626 m (5' 4") 08/01/23 1.626 m (5' 4") 10/12/22 1.626 m (5' 4") General: alert, healthy, and no distress Head: Normocephalic, No masses, lesions, tenderness or abnormalities Heart: regular rate & rhythm, no murmur, no gallops, S-1 normal, and S-2 normal Lungs: chest symmetric with normal AP diameter, no chest deformities noted, no chest wall tenderness, lungs clear to auscultation Abdomen: abdomen soft, L m id abdomen tenderness, normal bowel sounds, and no masses or organomegaly Skin: skin color, texture, turgor are normal, no rashes or significant lesions Assessment and Plan Abdominal pain, epigastric (Primary) - Sucralfate 1 GM Oral Tablet (Carafate); Crush one tab by mouth and mix with 10 ml of water - take30 min before meals and at bedtime Gastroesophageal reflux disease without esophagitis - Sucralfate 1 GM Oral Tablet (Carafate); Crush one tab by mouth and mix with 10 ml of water - take30 min before meals and at bedtime ? If she is digesting food Acidify diet Consider ursodiol if this does not work Wrap-Up Rev Dr Wu note Rev kub with patient Rev labs with patient Time: I spent a total of 40-54 minutes (exact time 46 mins) on the date of service in preparation, delivery, and documentation of the care provided to Evette Jackson excluding any time spent in the performance of separately billed services. Jennifer Monzon PA-C 01/03/2024 3:46 PM documented in this encounter Nursing Notes * Clair Menjivar LPN - 01/03/2024 3:04 PM EDT Evette Jackson is a 53 year old female who presents today for Chief Complaint Patient presents with Acute Pt states that she saw Dr. Wu last week, but she is still having GI issues documented in this encounter Plan of Treatment Health Maintenance Due Date Last Done Comments Hepatitis B Vaccine (1 of 3 - 19+ 3-dose series) 1990 Cologuard 2016 Fecal Occult Blood Test 2016 Sigmoidoscopy 2016 COVID-19 Vaccine (2022- season) 2023 Depression Screening 09/27/2023 09/26/2022 Influenza [...] Gastroesophageal reflux disease without esophagitis Esophageal reflux documented in this encounter Care Teams Sports Teacher Relationship Specialty Start Date End Date Jennifer Monzon PA-C [address] [facility] [address] PCP - General Physician Trench Pipe Layer Helper 10/02/18 documented as of this encounter
--- OUTSIDE RECORDS SUMMARY | 2024-03-06 05:18 | External Medical Summary | Summary of Care ---
Author Name Unknown Organization [facility] Address [address] [place] [address] Phone [phone] Care Team Providers Care Enforcement Manager Name Role Phone Jennifer Monzon PA-C Primary Care Provider [phone] [phone] Reason for Visit * Reason Onset Date Comments MyCode Consent 01/03/2024 Encounter Details Date Type Department Care Team ([facility] st Contact Info) Description 01/03/2024 Orders Only Outcomes Research Department [address] [place], [place] [id number] Sally Richardson CHRA MyCode Research Other*[id number]* Allergies No known active allergiesdocumented as of [...] as of this encounter Progress Notes * Sally Richardson CHRA - 01/03/2024 3:01 PM EDT MyCode Consent Documentation Evette Jackson provided consent/authorization to participate in the MyCode Project. documented in this encounter Plan of Treatment Scheduled Orders Name Type Priority Associated Diagnoses Orde r Schedule MYCODE INITIAL ADULT Lab Routine MyCode Research Other*[id number] Expected: 01/03/2024 (Approximate), Expires: 01/22/2025 Health Maintenance Due Date Last Done Comments [...] as of this encounter Visit Diagnoses Diagnosis MyCode Research Other*[id number] Primary documented in this encounter Care Teams Enforcement Manager Relationship Specialty Start Date End Date Jennifer Monzon PA-C [address] [place] [facility] [place] [address] PCP - General Physician Sawyer Cork Slabs 10/02/18 documented as of this encounter
--- OUTSIDE RECORDS SUMMARY | 2024-03-06 05:19 | External Medical Summary ---
Author Name Unknown Address Unknown Organization K[facility] [address] [facility] [place] [address] Laboratory Report Ordering Provider Test Date Status ALEJANDRO AMAYA 12/27/2023 15:52:43 Final Observation Date Value Abnormality Reference (Units ) Status BUN 12/27/2023 15:52:43 13 6-20 (mg/dL) Final Creatinine 12/27/2023 15:52:43 0.8 0.5-1.0 (mg/dL) Final Glomerular filtration rate/1.73 sq M.predicted [Volume Rate/Area] in Serum, Plasma or Blood by Creatinine-based formula (CKD-EPI) 12/27/2023 15:52:43 85 >=60 (mL/min) Final eGFR is calculated based on the CKD-EPI 2020 equation. Sodium 12/27/2023 15:52:43 141 135-146 (m mol/L) Final Potassium 12/27/2023 15:52:43 4.5 3.5-5.1 (m mol/L) Final Cl 12/27/2023 15:52:43 104 98-107 (mm ol/L) Final CO2 12/27/2023 15:52:43 26 22-32 (mmo l/L) Final Anion gap 12/27/2023 15:52:43 11 7-15 (mmol /L) Final Glucose 12/27/2023 15:52:43 93 70-120 (mg /dL) Final Albumin 12/27/2023 15:52:43 4.7 3.8-5.0 (g /dL) Final AST (Aspartate aminotransferase) 12/27/2023 15:52:43 23 10-35 (U/L) Final Alk Phos 12/27/2023 15:52:43 96 35-130 (U/ L) Final Bilirubin, Total 12/27/2023 15:52:43 0.3 <=1 .2 (mg/dL) Final Calcium 12/27/2023 15:52:43 9.8 8.4-10.2 ( mg/dL) Final Protein 12/27/2023 15:52:43 7.1 6.0-8.3 (g /dL) Final ALT (Alanine aminotransferase) 12/27/2023 15:52:43 25 10-35 (U/L) Final Performing Location [facility] [place] [address] [facility] [address]
--- OUTSIDE RECORDS SUMMARY | 2024-03-06 05:19 | External Medical Summary | Summary of Care ---
Author Name Unknown Organization [facility] Address [address] [place] [address] Phone [phone] Care Team Providers Care Experimental Display Builder Name Role Phone Jennifer Monzon PA-C Primary Care Provider [phone] [phone] Encounter Details Date Type Department Care Team (Late st Contact Info) Description 10/17/2023 Orders Only [facility] [address] [place] [address] Jennifer Monzon PA-C [address] [place] [address] Abnormal mammogram Allergies No known active allergiesdocumented as of this encounter (statuses as of 10/17/2023) Medications Medication Sig Dispensed Refills Start Date End Date Status omeprazole (PRILOSEC) 20 MG CPDRIndications:Gastr oesophageal reflux disease, esophagitis presence not specified,Nausea Take 1 Capsule by mouth in the morning. 1 hour before the first meal of the day. 30 Cap 5 08/06/2016 Active Calcium Carbonate 1500 (600 Ca) MG Oral Tablet Take 600 mg by mouth. 0 Active Famotidine 10 MG Oral Tablet (Pepcid) Take 1 Tablet by mouth in the morning and 1 Tablet before bedtime. 0 Active Cyclobenzaprine HCl 5 MG Oral Tablet (Flexeril)Indications :Chronic tension-type headache, not intractable Take 1 Tablet by mouth in the morning and 1 Tablet at noon and 1 Tablet before bedtime. 30 Tablet 0 07/25/2022 Active ProAir HFA 108 (90 Base) MCG/ACT Inhalation Aerosol SolutionIndications:B acterial infection,Cough, unspecified type Inhale 2 Puffs by mouth every 4 hours as needed for Wheezing. 18 g 1 07/02/2023 Active Triamcinolone Acetonide 0.1 % Mouth/Throat Paste (Kenalog In Orabase)Indications:O ral lesion Apply to inside of cheek 3 times a day. To affected area. 5 g 1 07/05/2023 Active Baclofen 5 MG Oral Tablet (Lioresal) Take 1 Tablet by mouth as needed. 0 Active predniSONE 10 MG Oral Tablet (Deltasone)Indication s:Spasm of muscle Take 5 tabs for 2 days, 4 tabs for 2 days, 3 tabs for 2 days, 2 tabs for 2 days 1 tab for 2 days 30 Tablet 0 08/01/2023 Active documented as of this encounter (statuses as of 10/17/2023) Active Problems Problem Noted Date Diagnosed Date Reactive cervical lymphadenopathy 05/29/2016 Anxiety state 11/20/2010 Family history of ischemic heart disease 010 documented as of this encounter (statuses as of 10/17/2023) Resolved Problems Problem Noted Date Diagnosed Date Resolved Date Edema 11/20/2010 07/15/2017 Myalgia and myositis 11/20/2010 018 CARBUNCLE RIGHT AXILLA 10/14/200807/15 documented as of this encounter (statuses as of 10/17/2023) Immunizations Name Administration Dates Next Due TD - Tetanus/Diptheria (ADULT) 06/10/2003 TDAP (age 10 and older)(Boostrix) 11/15/2017 documented as of this encounter Social History Tobacco Use Types Packs/Day Years Used Date Smoking Tobacco: Former Cigarettes 0.3 20 Smokeless Tobacco: Never Comments:Quit 2007 Alcohol Use [...] money to get more. Never true 09/26/2022 Sex and Gender Information Value Date Recorded Sex Assigned at Female 09/26/2022 8:24 AM EDT Gender Identity Female 09/26/2022 8:24 AM EDT Sexual Orientation Straight 09/26/2022 8: 24 AM EDT Job Start Date Occupation Industry Not on file Not on file Not on file documented as of this encounter Plan of Treatment Health Maintenance Due Date Last Done Comments HIV Screening 1986 Hepatitis C Screening 1989 Hepatitis B (1 of 3 - 19+ 3-dose series) 1990 Cologuard 2016 Fecal Occult Blood Test 2016 Sigmoidoscopy 2016 Zoster Vaccines (1 of 2) 2021 COVID-19 Vaccine ( season) 2023 Depression Screening 09/27/2023 09/26/2022 Influenza Vaccine (FLU shot) (Season Ended) 2024 Mammogram 09/30/2024 10/15/2023, 09/09, 09/26/2022, Additional history exists Lipid Panel 02/28/2026 02/28/2021, 020 10/2017, 12/20/2009 DTaP,Tdap,and Td Vaccines (2 - Td or Tdap) 11/16/2027 11/15/2017, 06/10/2003 Colonoscopy 06/29/2030 06/29/2020, 06/29/2020 Colorectal Cancer Screening 06/29/2030 Pap Smear Discontinued 05/15/2016, 07/2014, 05/05/2014, Additional history exists GARDASIL-HPV IMMUNIZATION SERIES Aged Out No longer eligible based on patient's age to complete this topic MENINGOCOCCAL (MENACTRA/MENVEO) Aged Out No longer eligible based on patient's age to complete this topic Pneumococcal Vaccine: Pediatrics (0 to 5 Years) and At-Risk Patients (6 to 64 Years) Aged Out No longer eligible based on patient's age to complete this topic documented as of this encounter Medical Devices Not on filedocumented as of this encounter Procedures Procedure Name Priority Date/Time Associated Diagnosis Comments MAMMOGRAM DIAGNOSTIC RIGHT Routine 10/15/2023 Abnormal mammogram documented in this encounter Results * MAMMOGRAM DIAGNOSTIC RIGHT (10/15/2023) Anatomical Region Laterality Modality Breast Right Other 10/15/2023 Jennifer Monzon PA-C RAD MAMMOGRAPHY documented in this encounter Visit Diagnoses Diagnosis Abnormal mammogram Abnormal mammogram, unspecified documented in this encounter Care Teams Experimental Display Builder Relationship Specialty Start Date End Date Jennifer Monzon PA-C [address] [place] [address] PCP - General Physician Shingle Carrier 10/02/18 documented as of this encounter
--- OUTSIDE RECORDS SUMMARY | 2024-03-06 05:19 | External Medical Summary ---
Author Name Unknown Address Unknown Organization K01:[facility] [place] - [address] [place] [address] Laboratory Report Ordering Provider Test Date Status ALEJANDRO AMAYA 12/27/2023 15:52:43 Final Observation Date Value Abnormality Reference (Units ) Status WBC, Total 12/27/2023 15:52:43 5.68 4.00-10.80 (K/uL) Final RBC 12/27/2023 15:52:43 4.36 3.85-5.15 (M/uL) Final Hemoglobin 12/27/2023 15:52:43 13.3 12.0-15.3 (g/dL) Final HCT 12/27/2023 15:52:43 42.6 36.0-45.2 (%) Final MCV 12/27/2023 15:52:43 97.7 81.5-97.5 (fL) Final MCH 12/27/2023 15:52:43 30.5 27.0-34.0 (pg) Final MCHC 12/27/2023 15:52:43 31.2 32.0-36.0 (g/dL) Final RDW 12/27/2023 15:52:43 12.7 11.5-15.5 (%) Final Platelets 12/27/2023 15:52:43 347 140-400 (K/uL) Final MPV 12/27/2023 15:52:43 9.5 6.6-11.1 (fL) Final Nucleated erythrocytes/100 leukocytes [Ratio] in Blood by Automated count 12/27/2023 15:52:43 0 <=0 (/100 WBCs) Final Performing Location [facility] [place] - [address] [place] [address]
--- OUTSIDE RECORDS SUMMARY | 2024-03-06 05:19 | External Medical Summary | Summary of Care ---
Author Name Unknown Organization [facility] Address [address] [place] [address] Phone [phone] Care Team Providers Care Heading Machine Operator Name Role Phone Jennifer Monzon PA-C Primary Care Provider [phone] [phone] Reason for Visit * Reason Onset Date Comments Order Request 10/03/2023 Mammogram/US Encounter Details Date Type Department Care Team ([facility] st Contact Info) Description 10/03/2023 Telephone [facility] [address] [place] [address] Jennifer Monzon PA-C [address] [place] [address] Order Request (Mammogram/US) Allergies No known active allergiesdocumented as of this encounter (statuses as of 10/03/2023) Medications Medication Sig Dispensed Refills Start Date [...] as of this encounter (statuses as of 10/03/2023) Active Problems Problem Noted Date Diagnosed Date Reactive cervical lymphadenopathy 05/29/2016 Anxiety state 11/20/2010 Family history of ischemic heart disease 010 documented as of this encounter (statuses as of 10/03/2023) Resolved Problems Problem Noted Date Diagnosed Date Resolved Date Edema 11/20/2010 07/15/2017 Myalgia and myositis 11/20/2010 018 CARBUNCLE RIGHT AXILLA 10/14/200807/15 documented as of this encounter (statuses as of 10/03/2023) Immunizations Name Administration Dates Next Due TD [...] on file documented as of this encounter Miscellaneous Notes * Telephone Encounter - Tere Arriaga OSA - 10/03/2023 12:22 PM EDT Faxed. 10/03/2023 * Telephone Encounter - Jennifer Monzon PA-C - 10/03/2023 12:11 PM EDT Abnormal mammogram (Primary) - MAMMOGRAM DIAGNOSTIC RIGHT; Future; Expected date: 04/03/2024 - US BREAST LIMITED RIGHT; Future; Expected date: 04/03/2024 Jennifer Monzon PA-C 10/03/2023 12:11 PM * Telephone Encounter - Niesha Rod LPN - 10/03/2023 9:43 AM EDT Received fax from [employer] to get orders that are pended. documented in this encounter Plan of Treatment Scheduled Orders Name Type Priority Associated Diagnoses Orde r Schedule MAMMOGRAM DIAGNOSTIC RIGHT Medical Imaging Routine Abnormal mammogram Expected: 04/03/2024, Expires: 11/01/2024 US BREAST LIMITED RIGHT Medical Imaging Routine Abnormal mammogram Expected: 04/03/2024, Expires: 11/01/2024 Health Maintenance Due Date Last Done Comments HIV Screening 1986 Hepatitis C Screening 1989 Hepatitis B (1 of 3 - 19+ 3-dose series) 1990 Cologuard 2016 Fecal Occult Blood Test 2016 Sigmoidoscopy 2016 Zoster Vaccines (1 of 2) 2021 COVID-19 Vaccine (1 - season) 2023 Depression Screening 09/27/2023 09/26/2022 Influenza Vaccine (FLU shot) (Season Ended) 2024 Mammogram 09/30/2024 10/01/2023, 09/08, 03/02/2021, Additional history exists Lipid Panel 02/28/2026 02/28/2021, [...] as of this encounter Visit Diagnoses Diagnosis Abnormal mammogram- Primary Abnormal mammogram, unspecified documented in this encounter Care Teams Heading Machine Operator Relationship Specialty Start Date End Date Jennifer Monzon PA-C [address] [place] [facility] [place] [address] PCP - General Physician Industrial Accountant 10/02/18 documented as of this encounter
--- OUTSIDE RECORDS SUMMARY | 2024-03-06 05:19 | External Medical Summary ---
Author Name Unknown Address Unknown Organization K01:[facility] - [address] [place] [address] Laboratory Report Ordering Provider Test Date Status ALEJANDRO AMYAA 12/27/2023 15:52:43 Final Observation Date Value Abnormality Reference (Units ) Status SYNC LEUKOCYTES IN BLOOD BY AUTOMATED COUNT 12/27/2023 15:52:43 5.68 4.00-10.80 (K/uL) Final Segs 12/27/2023 15:52:43 49.3 40.0-75.0 (%) Final Lymphs % 12/27/2023 15:52:43 38.2 18.0-42.0 (%) Final Monos 12/27/2023 15:52:43 9.3 1.0-11.0 (%) Final Eosinophils 12/27/2023 15:52:43 2.1 0.0-6.0 (%) Final Basos 12/27/2023 15:52:43 0.9 0.0-2.0 (%) Final Immature Granulocyte, Percent 12/27/2023 15:52:43 0.2 0.0-2.0 (%) Final Absolute Segs 12/27/2023 15:52:43 2.80 1.80-7.70 (K/uL) Final Lymphs, absolute 12/27/2023 15:52:43 2.17 1.00-4.80 (K/ul) Final Monos, Abs 12/27/2023 15:52:43 0.53 0.00-1.10 (K/uL) Final Eos, Abs 12/27/2023 15:52:43 0.12 0.00-0.70 (K/uL) Final Basos, Abs 12/27/2023 15:52:43 0.05 0.00-0.20 (K/uL) Final Immature Granulocytes, Number 12/27/2023 15:52:43 0.01 0.00-0.20 (K/uL) Final Performing Location [facility] - [address] [facility] [address]
--- OUTSIDE RECORDS SUMMARY | 2024-03-06 05:19 | External Medical Summary | Summary of Care ---
Author Name Unknown Organization [facility] Address [address] [place] [address] Phone [phone] Care Team Providers Care Iron Worker Apprentice Name Role Phone Jennifer Monzon PA-C Primary Care Provider [phone] [phone] Reason for Visit * Reason Onset Date Comments Advice 07/04/2023 Encounter Details Date Type Department Care Team ([facility] st Contact Info) Description 07/04/2023 Telephone [facility] [address] [place] [address] Jennifer Monzon PA-C [address] [place] [address] Advice Allergies No known active allergiesdocumented as of this encounter (statuses as of 10/03/2023) Medications Medication Sig Dispensed Refills Start Date End Date Status omeprazole (PRILOSEC) 20 MG CPDRIndications:Gas troesophageal reflux disease, esophagitis presence not specified,Nausea Take [...] Active Cyclobenzaprine HCl 5 MG Oral Tablet (Flexeril)Indicatio ns:Chronic tension-type headache, not intractable Take 1 Tablet by mouth in the morning and 1 Tablet at noon and 1 Tablet before bedtime. 30 Tablet 0 07/25/2022 Active ProAir HFA 108 (90 Base) MCG/ACT Inhalation Aerosol SolutionIndications :Bacterial infection,Cough, unspecified type Inhale 2 Puffs by mouth every 4 hours as needed for Wheezing. 18 g 1 07/02/2023 Active Cefdinir 300 MG Oral Capsule (Omnicef)Indication s:Bacterial infection Take 1 Capsule by mouth in the morning and 1 Capsule before bedtime. Do all this for 10 days. For 10 days.. 20 Capsule 0 07/02/2023 07/12/2023 documented as of this encounter (statuses as [...] encounter Miscellaneous Notes * Telephone Encounter - Melvina Bautista LPN - 07/05/2023 2:28 PM EST Patient was contacted and made aware but she states she has an appointment at 4 today with Jennifer and will get her opinion. * Telephone Encounter - Jennifer Monzon PA-C - 07/05/2023 1:42 PM EST Can also do gargles with warm water / honey I can prescribe kenalog (steroid) in orabase if she feels it is big enough to need it Jennifer Monzon PA-C * Telephone Encounter - Melvina Bautista LPN - 07/05/2023 9:27 AM EST Patient was contacted and she thinks that she is improving on the ABX and that she just had to giveit some time. She does state that she still has a low grade fever. Her sore in her mouth is from her eating soup that was too hot and burned her mouth. She has been using salt water and Listerine to help cleanse out the wound. * Telephone Encounter - Jennifer Monzon PA-C - 07/04/2023 3:59 PM EST Does not have mrsa - has e coli The antibiotic is one that the bacteria is sensitive to She could do a shot of antibiotic to boost the impact Does she think the sore on her mouth was from the antibiotic? Jennifer Monzon PA-C * Telephone Encounter - Britt Rosas OSA - 07/04/2023 12:02 PM EST Patient calling in stating has not really improved since starting the antibiotic, with her past experience with having MRSA she is afraid it will get worse, she also has developed a sore on the roof of her mouth. Please call to advise what she should do or when she should expect to feel better. 1. When were you seen for this problem? yes 2. What provider did you see for this problem? [facility] 3. What medications are you presently taking? cefdinir 4. What is it that is no better? Please refer to Call Details. documented in this encounter Plan of Treatment [...] filedocumented as of this encounter Care Teams Iron Worker Apprentice Relationship Specialty Start Date End Date Jennifer Monzon PA-C [address] [place] [address] PCP - General Physician Draw Hand 10/02/18 documented as of this encounter
--- OUTSIDE RECORDS SUMMARY | 2024-03-06 05:19 | External Medical Summary | Summary of Care ---
Author Name Unknown Organization [facility] Address [address] [place] [address] Phone [phone] Care Team Providers Care Exploration Geologist Name Role Phone Jennifer Monzon PA-C Primary Care Provider [phone] Encounter Details Date Type Department Care Team ([facility] st Contact Info) Description 10/03/2023 Orders Only [facility] [address] [place] [address] Jennifer Monzon PA-C [address] [place] [address] Encounter for screening mammogram for breast cancer Allergies No known active allergiesdocumented as of [...] Additional history exists Lipid Panel 02/28/2026 02/28/2021, 0210/2017, 12/20/2009 DTaP,Tdap,and Td Vaccines (2 - Td [...] Name Priority Date/Time Associated Diagnosis Comments MAMMOGRAM SCREENING AJAY BILATERAL Routine 10/01/2023 Encounter for screening mammogram for breast cancer documented in this encounter Results * MAMMOGRAM SCREENING AJAY BILATERAL (10/01/2023) Anatomical Region Laterality Modality Breast Bilateral Other 10/01/2023 Jennifer Monzon PA-C RAD MAMMOGRAPHY documented in this encounter Visit Diagnoses Diagnosis Encounter for screening mammogram for breast cancer documented in this encounter Care Teams Exploration Geologist Relationship Specialty Start Date End Date Jennifer Monzon PA-C [address] [place] [address] PCP - General Physician Referral Management Liaison 10/02/18 documented as of this encounter
[2024-03-06 05:55] LABS: BUN Creatinine Ratio 13.9 (10-20); Calcium 9.6 mg/dl (8.6-10.3); Creatinine Clr Calc Pharmacy 78.9 ml/min; Est GFR (African American) 111.6 ml/min; Est GFR (Non-African American) 96.3 ml/min; Potassium 4.2 mmol/L (3.5-5.1)
[2024-03-06 08:51] VITALS: O2SAT 94
[2024-03-06] MEDS: PSYLLIUM or GUAR GUM FIBER 4GM PACKET PO SCH (08:53)
[2024-03-06] MEDS: MULTIVITAMIN TAB PO SCH (08:53)
[2024-03-06] MEDS: METOPROLOL TARTRATE 25 MG TAB PO SCH (08:53)
--- NOTE | 2024-03-06 12:33 | Cardiology Consultation ---
Date of Consultation March 06, 2024 Assessment & Plan (1) Hypertensive urgency: (2) Palpitations: (3) Mobitz type 1 second degree AV block: Plan I had a long discussion with the patient regarding the natural history and pathophysiology of hypertension. Hypertensive urgency on admission likely exacerbated by stress and anxiety. Isolated PVC recorded. Beta-elva is not preferred first-line treatment for hypertension. Transient, asymptomatic second- degree AV block Mobitz type I recorded on telemetry during sleep. Discontinue metoprolol with transition to losartan 50 mg daily. She will require a repeat basic metabolic panel 1 week after beginning treatment. Therapeutic lifestyle changes reviewed including sodium restriction, stress management, limiting ETOH/caffeine intake and the benefits of regular aerobic exercise. All questions answered to patient's satisfaction. Thank you for allow me to participate in the care of your patient. No further inpatient cardiac testing recommended at this time. History of Present Illness Reason for Consultation: HTN, palpitations Requesting Physician: Dr. Sutton Attending Physician: Tamika Sandoval MD History of Present Illness 53-year-old female present to the emergency department with palpitations and uncontrolled blood pressure. Previously untreated for hypertension. Throughout the day 03/05/2024 she frequently rechecked her blood pressure which was continued to elevate. Reports significant stress in her home life. Unfortunately, her recently lost his job. She contacted a nurse via [employer] and rechecked blood pressure which was 200/110. Subsequently referred to the ER for further evaluation and treatment. Hypertensive on initial presentation here. Treated with metoprolol and IV hydralazine. Blood pressure improved overnight. Patient also complained of intermittent palpitations. Telemetry revealed demonstrating isolated PVC. She was prescribed metoprolol by the male impersonator. Currently feeling better this a.m. No recurrent palpitations. Denies lightheadedness, dizziness, syncope, or near syncope. No exertional chest pain or unusual shortness of breath. Preliminary review of bedside echocardiogram demonstrates preserved LV systolic function without evidence of left ventricular hypertrophy. Allergies Allergy/AdvReac Type Severity Reaction Status Date / Time No Known Allergies Allergy Verified 03/06/24 00:27 Home Medications Medication Instructions Recorded Confirmed Type baclofen 10 mg tablet 10 mg PO DAILY PRN PAIN/ SWELLING 09/25/23 03/06/24 History ascorbic acid (vitamin C) 1,000 mg 1,000 mg PO DAILY 03/06/24 03/06/24 History tablet (Vitamin C) aspirin 81 mg capsule 81 mg PO TID PRN Pain 03/06/24 03/06/24 History calcium acetate 667 mg tablet 667 mg PO DAILY 03/06/24 03/06/24 History famotidine 20 mg tablet 20 mg PO DAILY PRN Acid Reflux 03/06/24 03/06/24 History ibuprofen 200 mg tablet 200 mg PO Q6H PRN Pain 03/06/24 03/06/24 History multivitamin 1 tab PO DAILY 03/06/24 03/06/24 History psyllium husk 2.6 gram/4.1 gram 1 tsp PO DAILY 03/06/24 03/06/24 History oral powder Patient History Medical History No acute medical problems Surgical History No pertinent past surgical history Family History Father Myocardial infarction Denies family history of Ovarian cancer Prostate cancer Breast cancer Colorectal cancer Social History Smoking Status: Never smoker Second Hand Exposure: No; Do You Dip or Chew Tobacco: No; Tobacco Cessation Education Requested by Patient: No Hx Alcohol Use: Yes Alcohol type: other Hx Substance Use: No Preferred Language: Maltese Communication Ability: Effective Director Dermatology Required: No Beliefs That Will Affect Care: None Current Living Situation: Spouse Other Information That Helps Us Care for You: No Feels Safe at Home: Yes Safety Concerns: Feels Safe At This Time Assistive Devices: None Review of Systems Review of Systems: All systems reviewed & are unremarkable except as noted in Subjective Physical Exam Constitutional: well nourished; no acute distress Respiratory: no respiratory distress, no labored breathing and no retractions Cardiovascular: Rate/Rhythm: regular rate and regular rhythm Heart Sounds: normal S1 and normal S2; no murmur Extremities: no edema Gastrointestinal (Abdomen): Inspection/Auscultation: abdomen normal to inspection and normal bowel sounds; abdomen not distended Neurologic: CN's II-XI intact bilaterally and moves all extremities; no focal motor deficits Results & Data Vital Signs (Past 12 Hours) Vital Signs Pulse Pulse Resp BP BP Pulse Ox Pulse Ox 03/06/24 12:04 74 16 131/87 94 03/06/24 08:50 81 18 147/86 H 94 03/06/24 04:30 76 22 156/95 H 97 03/06/24 03:12 96 03/06/24 03:00 77 13 134/92 98 03/06/24 01:01 69 17 155/100 H 96 03/06/24 00:56 68 12 136/91 98 03/06/24 00:52 76 12 136/91 97 03/06/24 00:45 73 16 136/91 97 O2 Del Method O2 Del Method 03/06/24 12:04 Room Air 03/06/24 08:50 Room Air 03/06/24 04:30 Room Air 03/06/24 03:12 Room Air 03/06/24 03:00 Room Air 03/06/24 01:01 Room Air 03/06/24 00:56 Room Air 03/06/24 00:52 Room Air 03/06/24 00:45 Room Air Laboratory Results Cardiac Enzymes 03/05/24 Range/Units 19:11 Troponin I High Sens 2.9 (0-14) pg/ml Coagulation 03/05/24 Range/Units 19:11 PT 10.8 (9.0-12.0) Seconds APTT 30 (21-31) Seconds CBC 03/05/24 Range/Units 19:11 WBC 7.30 (4.8-10.8) K/ul RBC 4.41 (4.20-5.40) M/uL Hgb 13.6 (12.0-16.0) g/dl Hct 40.1 (37.0-47.0) % Plt Count 355 (130-400) K/uL Neut # (Auto) 4.45 (1.40-6.50) K/uL Lymph # (Auto) 2.17 (1.20-3.40) K/uL Drew # (Auto) 0.48 (0.11-0.59) K/uL Eos # (Auto) 0.11 (0.00-0.50) K/uL Baso # (Auto) 0.06 (0.00-0.20) K/uL Comprehensive Metabolic Panel 03/05/24 03/06/24 Range/Units 19:11 05:24 Sodium 138 141 (136-145) mmol/L Potassium 3.7 4.2 (3.5-5.1) mmol/L Chloride 104 109 H (98-107) mmol/L Carbon Dioxide 26 27 (21-32) mmol/L BUN 12 10 (6-23) mg/dl Creatinine 0.78 0.72 (0.6-1.2) mg/dl Glucose 102 H 100 H (70-99(Fasting)) mg/dl Calcium 9.4 9.6 (8.6-10.3) mg/dl Intake and Output 03/05/24 03/06/24 03/06/24 22:59 06:59 14:59 Other: Weight 62.6 kg 65.4 kg Weight Measurement Method Chair Scale Built in [facility]
--- NOTE | 2024-03-06 13:17 | Discharge Summary ---
Date of Service March 06, 2024 Admission HPI Per Admitting Provider History obtained from patient, family, and records. Medical history significant for past tobacco abuse. Last confinement 2016 under Gynecology service for elective total laparoscopic hysterectomy. Patient woke up this morning not feeling well. High blood pressure throughout the day, SBP 1 40-210. Palpitations without chest pain or SOB. Denies unusual headache symptoms. Admits to some stress at home due to losing employment recently. Denies inordinate OTC NSAID intake. Admits to some dietary indiscretion. Patient snores a little as per but no witnessed apneic episodes at home. SBP 230s upon arrival at the ER. Occasional PVCs noted on ED telemetry. Medical History as above Surgical History : Hysterectomy Family History : Heart disease, DM, thyroid disease, lung cancer Personal/Social history : Past tobacco abuse, occasional EtOH intake, veterinary clinic employment Admission Exam Per Admitting Provider GENERAL: Comfortable, pleasant, no respiratory distress SKIN: Normal color, warm HEENT: [place] palpebral conjunctivae, no ptosis, moist buccal mucosa NECK : Supple, no tenderness CHEST : CTA, no tenderness HEART : RRR, no obvious murmurs ABDOMEN: Some distention, nontender EXTREMITIES : No LE swelling/tenderness, no other conspicuous deformities noted NEUROLOGIC : Coherent, no facial asymmetry, no other gross focality Principal Diagnosis Hypertensive urgency Palpitations Discharge Exam Constitutional + well hydrated; no acute distress Eyes PERRL, conjunctivae normal, anicteric sclerae ENMT external ear and nose normal, oropharynx normal Respiratory normal respiratory effort, lungs clear to auscultation Cardiovascular RRR, no murmur, no edema Gastrointestinal (Abdomen) normal bowel sounds, soft, nontender, no hepatosplenomegaly Musculoskeletal no cyanosis or clubbing, extremities motor strength 5/5 Neurologic PERRL, EOMI, accommodation nl, no face palsy, no dysarthria Psychiatric A+Ox3, euthymic affect Discharge Data Allergies Allergy/AdvReac Type Severity Reaction Status Date / Time No Known Allergies Allergy Verified 03/06/24 00:27 Consultations 03/05/24 20:24 ED Decision to Admit Stat 03/05/24 23:03 Consult Cardiology Routine Ordered Studies 03/05/24 19:09 CT angio chest PE protocol Stat Hospital Course (1) Hypertensive urgency: BP was 234/123 on presentation Hypertensive urgency exacerbated by stress and anxiety Isolated PVC noted on tele. Asymptomatic second degree AV block nuzhat Serrano recorded on telemetry during sleep BP is better control now Cardiology evaluated and made recommendations Started on losartan 50mg daily BP improved to 147/86 this AM Patient to follow up with PCP. PCP to check BMP next week and arrange zio patch/holter monitor Patient educated on lifestyle modification, low salt diet Ibuprofen discontinued Total Time Total Time Spent Total Time Spent (In Minutes): 35 Total Time Includes: Examination of the Patient, Discharge Planning and Medication Reconciliation Discharge Plan Discharge Items Patient Disposition: Home - Self-Care Reason For Visit: HTN URG, PALPITATIONS Discharge Diagnosis: Hypertensive urgency Palpitation Activity: Resume your previous activity Non-emergency contact: Primary Care Provider Call non-emergency contact if: you have any medication questions Follow-up/Referrals: Jennifer Monzon PA-C [Primary Care Provider] - (Date & Time 03/11/2024 10:20 AM Provider Jennifer Monzon PA-C Department [facility] ) Diet: Heart Healthy and Low Sodium (2gm) Addtl Attending Provider Instructions: Mrs Manuel Guallpa came to the hospital with palpitations and was found to have elevated blood pressure. You are being started on Losartan 50mg daily. Please ensure followup with your Primary Doctor who will arrange lab test (Basic metabolic panel) next week as well as zio patch or holter monitor. It was a pleasure taking care of you Pending Studies at Discharge: No Stand-Alone Forms: [facility], Smoking Cessation Medications and DC Order Prescriptions: New losartan 50 mg Tablet 50 mg PO QAM 30 Days Qty: 30 0RF Continued baclofen 10 mg tablet 10 mg PO DAILY PRN (Reason: PAIN/ SWELLING) multivitamin Tablet 1 tab PO DAILY ascorbic acid (vitamin C) [Vitamin C] 1,000 mg Tablet 1,000 mg PO DAILY famotidine 20 mg Tablet 20 mg PO DAILY PRN (Reason: Acid Reflux) calcium acetate 667 mg Tablet 667 mg PO DAILY aspirin 81 mg Capsule 81 mg PO TID PRN (Reason: Pain) Rx Instructions: PT STATES SHE TOOK 3 IN AM AND 3 IN PM 03/05/24 psyllium husk 2.6 gram/4.1 gram Powder 1 tsp PO DAILY Rx Instructions: mix into at least 4 oz water or juice before administering Discontinued ibuprofen 200 mg Tablet 200 mg PO Q6H PRN (Reason: Pain) Discharge Orders: Discharge Order (Routine); Ordered 03/06/24 Ordered By: Tamika Sandoval Admission Data Admit Date/Time: 03/05/24 21:12 Attending Provider: Tamika Sandoval I. Admit Provider: Tobias Sutton Primary Care Provider: Jennifer Monzon Other Providers: Tobias Sutton; Maricruz Nevarez; Henry Mcdowell; Carlito Ortiz; Caleb Wang; Henrique Kirkland; Rohith Mckeon; Jerrica Virk; Linh Tucker; Yonatan Herzog Ashley M.; Vicente Carr; Bart Jorgensen; Alesha Meade; Maribell Sullivan; Yue Cuevas; Ant Irizarry; Arnie Palmer; Violette Bonilla Other Interventions: Discharge Summary Assessment (RN) Last Done: 03/06/24 14:20
[2024-03-06 14:15] VITALS: BP 130/82; PULSE 80; RESP 18
[2024-03-06] MEDS: LOSARTAN POTASSIUM 50 MG TAB PO SCH (14:15)
--- NOTE | 2024-03-06 22:51 | Electrocardiogram Report ---
Test Reason : Blood Pressure : */* mmHG Vent. Rate : 78 BPM Atrial Rate : 78 BPM P-R Int : 150 ms QRS Dur : 90 ms QT Int : 392 ms P-R-T Axes : 68 30 35 degrees QTcB Int : 446 ms Normal sinus rhythm Normal ECG When compared with ECG of 08-Jun-2021 03:43, No significant change was found Confirmed by German Barton ([id number] on 03/06/2024 10:50:55 PM Referred By: REFERRED SELF Confirmed By: German Barton
== END 2024-03-06 14:21 | disposition home or self-care (01) ==
LOC: EDINP 18:48 → ED 18:48 → EDINP 23:04